=== PATIENT | female | born 1970 | race Caucasian/White ===

== ENCOUNTER → 2017-06-04 | Outpatient (CLI) | payer OTHER ==
--- NOTE | 2017-06-09 08:13 | MM ---
Reason for exam: screening (asymptomatic). Last mammogram was performed 1 year and 4 months ago. History: Benign excisional biopsy of the right breast, April 10, 2008. Physical Findings: A clinical breast exam by your physician is recommended on an annual basis and results should be correlated with mammographic findings. MG Screening Mammo w CAD Bilateral CC and MLO view(s) were taken. Prior study comparison: February 07, 2016, bilateral MG screening mammo w CAD. January 26, 2015, bilateral MG screening mammo w CAD. The breast tissue is extremely dense which could obscure a lesion on mammography. No significant changes when compared with prior studies. ASSESSMENT: Benign, BI-RAD 2 RECOMMENDATION: Routine screening mammogram of both breasts in 1 year.
== END | disposition home or self-care (01) ==
LOC: RADMAMWWP 15:10
PROVIDERS: ATTEND Family Medicine
DX: Z12.31 Encounter for screening mammogram for malignant neoplasm of breast (principal)

== ENCOUNTER → 2018-04-06 | Outpatient (CLI) | payer OTHER ==
--- NOTE | 2018-04-06 08:13 | MR ---
EXAMINATION TYPE: MR cervical spine wo con DATE OF EXAM: 04/06/2018 COMPARISON: NONE HISTORY: Radiculopathy TECHNIQUE: Multiplanar, multisequence images of the cervical spine were acquired. C2-C3: No evidence for degenerative disc disease. No disc bulge/herniation or protrusion. No Canal stenosis. Foramina are patent bilaterally. C3-C4: Uncovertebral joint hypertrophy in the left with mild left-sided foraminal encroachment. No ca nal stenosis or disc herniation. C4-C5: Bilateral uncovertebral joint hypertrophy. Left paracentral focal disc bulging noted. This enc roaches upon the anterior margin the spinal cord. Results in mild left foraminal encroachment. C5-C6: Degenerative disc disease with broad-based central, right paracentral and lateral disc protrus ion or small herniation. Severe right-sided foraminal encroachment. Moderate effacement of thecal sac and mild central stenosis. Uncovertebral joint hypertrophy noted. C6-C7: No evidence for degenerative disc disease. No disc bulge/herniation or protrusion. No Canal stenosis. Foramina are patent bilaterally. C7-T1: No evidence for degenerative disc disease. No disc bulge/herniation or protrusion. No Canal stenosis. Foramina are patent bilaterally. Cervical segments are intact. There is normal alignment. Cervical spinal cord is of normal signal. Craniovertebral junction relationships are within normal limits. Scoliotic curvature of the spine n oted. IMPRESSION: 1. C5-C6 there is broad-based central, right paracentral and right lateral disc protrusion or herniat ion resulting in severe right-sided foraminal encroachment. Moderate effacement of thecal sac and mil d central stenosis. Posterior spondylosis and uncovertebral joint hypertrophy contribute. 2. Left paracentral disc bulging which abuts the anterior margin the spinal cord C4-C5 and results in left-sided mild foraminal encroachment. 3. Uncovertebral joint hypertrophy C3-C4 with mild left-sided foraminal encroachment
== END ==
LOC: RADMRIMAIN 07:13
PROVIDERS: ATTEND Orthopaedic Surgery Orthopaedic Surgery of the Spine
DX: M48.02 Spinal stenosis, cervical region (principal); M50.122 Cervical disc disorder at C5-C6 level with radiculopathy; M47.22 Other spondylosis with radiculopathy, cervical region
CPT/HCPCS: 72141

== ENCOUNTER → 2018-05-20 | Outpatient (CLI) | payer OTHER ==
[2018-05-19 14:53] VITALS: BMI 26.2
[2018-05-20 13:34] VITALS: BP 176/95; PULSE 98; RESP 16
--- NOTE | 2018-05-21 08:36 | P.PAINCN ---
History of Present Illness - Reason for Consult Consult date: 05/20/18 - History of Present Illness This is 47 years old female with history of severe neck pain with limited to the right upper extremity, associated with numbness and tingling sensation, the symptoms started 4 months ago an increase in intensity over time, she denies any initiating event, pain is constant and aggravated with any activity, she has done physical therapy without any improvement, intensity of the pain 7/10 increased to 10 over 10 with activity, she denies any fever or night sweats she denies any change in the bowel movement or urination, she denies any motor or sensory deficit Past Medical History Past Medical History: GERD/Reflux, Musculoskeletal Disorder Additional Past Medical History / Comment(s): bone spur in neck, numbness, tingling down right arm History of Any Multi-Drug Resistant Organisms: None Reported Past Surgical History: Breast Surgery, Section, Cholecystectomy Additional Past Surgical History / Comment(s): breast biopsy, D & C's Past Anesthesia/Blood Transfusion Reactions: No Reported Reaction Smoking Status: Former smoker - Past Family History Father Family Medical History: Cancer Mother Family Medical History: Cancer Medications and Allergies Home Medications Medication Instructions Recorded Confirmed Type Acetaminophen [Tylenol] 325 mg PO Q6H PRN 05/19/18 05/19/18 History Ranitidine HCl [Zantac] 150 mg PO BID PRN 05/19/18 05/19/18 History Allergies Allergy/AdvReac Type Severity Reaction Status Date / Time acetaminophen [From Tavist] Allergy Rash/Hives Verified 05/19/18 14:50 clemastine [From Tavist] Allergy Rash/Hives Verified 05/19/18 14:50 Penicillins Allergy Rash/Hives Verified 05/19/18 14:50 pseudoephedrine [From Tavist] Allergy Rash/Hives Verified 05/19/18 14:50 Tetanus Vaccines and Toxoid Allergy Rash/Hives Verified 05/19/18 14:50 antiinflammatories Allergy Rash/Hives Uncoded 05/19/18 14:50 Physical Exam Vitals: Vital Signs Pulse Resp BP Pulse Ox 05/20/18 13:27 98 16 176/95 97 Social history : smoker , NO ETOH , NO Illegal drugs use . Review of Systems : 1- Constitutional : no chills , no fever , no night sweats , 2- Ears : no ear discharge , no change in hearing 3-Nose, Mouth ,Throat ; no bleeding gums, no sore throat , no epistaxis , 4-Cardiovascular : Denies chest pain, , no orthopnea , no palpitation 5-Respiratory : Denies cough , no dyspnea , no hemoptysis 6-Gastrointestinal :, no change in bowel habits , no coffee- ground emesis . 7-Genitourinary : No hematuria , no discharge , no incontinence, 8-Musculoskeletal : No gait dysfunction , report low back pain , 9- Neurological : no ataxia , no tremor , no sezure , 10-Psychatric , no suicidal ideation no hallucination 11- Endocrine : no cold intolerence , no polyuria , no polydypsia , 12-Hematologic : no easy bleeding , no easy brusing , 13-Allergic / immunology : no angioedema , no wheezing ,no allergic rhinitis 14-Integumentary : no brttle nails , no change hair / nails , no foot/leg ulcers . Physical Examinations : 1-Constitutional : Cooperative , not in acute distress . 2-HEENT : nech ; supple , no Lymphadenopathy , no Thyromegaly , :eyes , no icterus, no photophobia . ENT : , normal oropharynx , no Thrush 3- Respiratory : Chest clear to auscultations Bilaterally , no wheezing . 4- Cardiovascular : regular rate and rhythem , S1 , S2 , no S3 , no S4. 5- Gastrointestinal: abdomen soft no tenderness , no organomegally . 6- Genitourinary : Defferred . 7-Integumentary : No cellulitis , no ulcers , normal skin turgor , no cyanotic . 8- neurologic : Cranial nerve II to XII intact , no focal neurological deffecit 9-psychatric : alert , oriented X 3 , appropriate affect , intact judgment and insight . 10-Lymphatic : no Lymphadenopathy. 11- musculoskeltal: normal gait Cervical Spine motor stregnth in the deltoid and biceps, normal right side , normal Left side motor stregnth biceps and the wrist extensors normal right side ,normal left side . motor stregnth in the triceps muscle . normal Right side , normal Left side deep tendon reflexes normal at the biceps , normal at Brachioradialis , normal at triceps. cervical facet loading test negative. Results Comments: MRI of the cervical spine= C5 6 degenerative disc disease and right paracentral disc herniation and facet hypertrophy Assessment and Plan Plan: Assessment and plan= cervical radiculopathy, cervical disc herniation, She could benefit from cervical epidural steroid injections, procedure risk ,and benefits, and alternatives discussed with the patient ,she agreed with the preceding Time with Patient: Greater than 30 PQRS Measure Charge Sheet Measure #130: Documentation of Current Meds in Medical Chart: Patient's medications documented in chart Measure #226: Tobacco Use: Screen & Cessation Intervention: Pt not a tobacco user Measure #111: Pneumonia Vaccination: Pneumococcal vaccine NOT administered or previously given Measure #47: Advance Care Plan: Advance care planning discussed & documented, pt chose/unable to give Measure #412: Opioid Treatment Agreement: No documentation of signed opioid treatment agreement Measure #408: Opioid Therapy Follow-up Evaluation: Patient had NO f/u eval minimum every 3 months during opioid therapy Measure #317: Preventitive Care & Scrn High Bld Press & F/U: Pre-hypertensive or hypertensive BP documented, pt will f/u with PCP Measure #128: Body Mass Index (BMI) Screening & Follow-up: BMI documented ABOVE normal parameters - f/u documented Measure #131: Pain Assessment & Follow-up: Pain positive & plan documented, Follow-up scheduled Measure #431: Unhealthy Alcohol Use Preventative Care & Scrn: Patient not identified as an unhealthy alcohol user PQRS Narrative: Smoking Status Former smoker Do You Want the Pneumonia No Vaccine AT THIS TIME? Blood Pressure 176/95 Pain Intensity [Right Neck] 7 Scale Used Numeric (1 - 10) Hx Alcohol Use (MH) No Home Medications: Ambulatory Orders Acetaminophen [Tylenol] 325 mg PO Q6H PRN 05/19/18 Ranitidine HCl [Zantac] 150 mg PO BID PRN 05/19/18
== END | disposition home or self-care (01) ==
LOC: PNWHC3 12:50
PROVIDERS: ATTEND Specialist
DX: M50.122 Cervical disc disorder at C5-C6 level with radiculopathy (principal); K21.9 Gastro-esophageal reflux disease without esophagitis; Z87.891 Personal history of nicotine dependence; Z79.899 Other long term (current) drug therapy; Z88.0 Allergy status to penicillin; Z88.8 Allergy status to other drugs, medicaments and biological substances
CPT/HCPCS: 99201

== ENCOUNTER 2018-06-01 06:16 | Day surgery (SDC) | payer OTHER ==
[2018-05-27 14:45] VITALS: BMI 26.2
[~2018-06-01 06:16] MED LIST: LACTATED RINGERS 1,000 ML IV SCH
[2018-06-01 06:33] VITALS: TEMP 97
[2018-06-01 07:29] VITALS: RESP 20
--- NOTE | 2018-06-01 07:37 | P.PCN ---
Date of Procedure: 06/01/18 Surgeon: Dereje Malhotra Description of Procedure: PREOPERATIVE DIAGNOSIS: Cervical radiculopathy Cervical degenerative disc disease POSTOPERATIVE DIAGNOSIS: Cervical radiculopathy Cervical degenerative disc disease PROCEDURE Cervical neural steroid injection under fluoroscopic guidance at the C7-T1 interspace. ANESTHESIA: Local with 1% lidocaine 3 ml and IV sedation with Versed 2 mg and 100 mg of fentanyl EBL: Minimal PROCEDURE INDICATION: The patient with cervical radicular symptoms unresponsive to conservative treatment. Fluoroscopy was used to optimize visualization of the needle placement and to maximize safety. PROCEDURE DESCRIPTION / TECHNIQUE: The patient was seen and identified in the preoperative area. Risks, benefits , complications including but not limited to infections ,bleeding ,allergic reaction to the medications ,nerve damage and incomplete pain relief, and alternatives were discussed with the patient. The patient agreed to proceed with the procedure and signed the consent. IV was started, and vital signs were stable. Patient was taken to the OR and time out was completed. The patient was placed in the prone position on procedure table and a pillow was placed under the chest area.. The cervical area was prepped and draped in the usual sterile fashion. Conscious sedation was used during the procedure to decrease patient s anxiety. Vital signs was monitered during the entire procedure. Using anterior-posterior fluoroscopy, the C7-T1 interlaminar space was identified and the skin over this site was marked and then infiltrated with 1% lidocaine subcutaneously. Subsequently, a 20-gauge Tuohy epidural needle was inserted and advanced toward the epidural space using the loss of resistance technique and guided by AP and lateral fluoroscopy. The correct needle position in the epidural space was verified with the injection of contrast and observing an excellent epidurogram with the epidural spread of the dye, after negative aspiration for blood and CSF and in the absence of paresthesias. Again after negative aspiration, a 4 ml mixture containing 80 mg of Depo-Medrol was injected. Needle was withdrawn intact, skin was cleansed, and bandages were applied. COMPLICATIONS: None DISPOSITION / PLANS: The patient was placed in a supine position and transferred to the recovery area in a stable condition for observation. There was no evidence of lower extremity motor or sensory deficit after the procedure. Patient was discharged from the recovery room after meeting discharge criteria. Home discharge instructions were given to the patient by the staff. The patient was reexamined prior to discharge. The patient will schedule a follow up in the clinic in 2-4 weeks.
[2018-06-01] MEDS ORDERED: IV FLUID CONTINUATION 1,000 ML IV ONE (07:50)
[2018-06-01 07:51] VITALS: BP 124/81; PULSE 80
--- NOTE | 2018-06-01 08:55 | FL ---
Fluoroscopy INDICATION: Pain FINDINGS: Fluoroscopy time: 8 seconds. Images obtained: 2. IMPRESSIONS: 1. Documentation of fluoroscopy.
== END 2018-06-01 07:55 | disposition home or self-care (01) ==
LOC: ORPAIN 06:16
PROVIDERS: ATTEND Pain Medicine Pain Medicine
DX: M50.10 Cervical disc disorder with radiculopathy, unspecified cervical region (principal); K21.9 Gastro-esophageal reflux disease without esophagitis; Z87.891 Personal history of nicotine dependence; Z88.0 Allergy status to penicillin; Z88.8 Allergy status to other drugs, medicaments and biological substances; Z88.7 Allergy status to serum and vaccine
CPT/HCPCS: 81025; 62321; J2250; J1030; J3010; Q9966; 99152

== ENCOUNTER 2018-06-15 06:26 | Day surgery (SDC) | payer OTHER ==
[2018-06-10 10:43] VITALS: BMI 26.2
[2018-06-15 07:15] VITALS: RESP 16; TEMP 98
[2018-06-15] MEDS ORDERED: LIDOCAINE 1% 20 ML VIAL (10MG/ML) FOR IV START INTRADERMA ONE (07:22)
--- NOTE | 2018-06-15 07:45 | P.PCN ---
Date of Procedure: 06/15/18 Surgeon: Nirmala Walsh Pathology: none sent Condition: stable Disposition: PACU Description of Procedure: PROCEDURE 1. Cervical epidural steroid injection under fluoroscopic guidance, C7-T1 right paramedian approach. 2. Cervical epidurogram. : PREOPERATIVE DIAGNOSIS: Cervical radiculopathy, cervical spondylosis without myelopathy POSTOPERATIVE DIAGNOSIS: : Same as above ANESTHESIA: Local anesthesia with 1% lidocaine and IV sedation with Versed and Fentanyl . EBL 0 PROCEDURE INDICATION: The patient with neck pain and radiculopathy unresponsive to conservative treatment consents for procedure. PROCEDURE DESCRIPTION / TECHNIQUE: The patient was seen and identified in the preoperative area. Risks, benefits, complications, including but not limited to infections ,bleeding , allergic reactions to the medications ,and not complete pain relief, and alternatives were discussed with the patient, the patient agreed to proceed with the procedure and signed the consent. Patient was taken to the OR and time out was completed. The patient was placed in the prone position on the procedure table. A pillow was placed under the patients chest to increase the flexion of the cervical spine . The cervical area was prepped and draped in the usual sterile fashion. Vital signs were closely monitored during the procedure. Conscious sedation was used during the procedure to decrease patients anxiety. Using anterior-posterior fluoroscopy, the C7-T1 interlaminar space was identified and the skin over this site was marked and then infiltrated with 1% lidocaine subcutaneously. Subsequently, a 20-gauge 3-1/2-inch Tuohy epidural needle was inserted and advanced toward the epidural space by means of loss of resistance to air technique and guided by AP and lateral fluoroscopy in the right paramedian approach. The needle tip contacted the lamina of T1 vertebra first, then it was walked off the bone and into the epidural space using the loss of to air and fluoroscopic guidance to identify the epidural space. The correct needle position in the epidural space was verified with the injection of 1 mL of the water soluble contrast dye Isovue and observing an excellent epidurogram with the epidural spread of the dye, after negative aspiration for blood and CSF and in the absence of paresthesias. Again after negative aspiration, a 5 ml mixture containing 10 mg of Decadron and 4 ml of preservative free Normal Saline solution was injected and a washout of epidurogram was seen. Needle was withdrawn intact, skin was cleansed, and bandages were applied.
[2018-06-15 08:04] VITALS: BP 142/84; PULSE 78
[2018-06-15] MEDS ORDERED: IV FLUID CONTINUATION 1,000 ML IV ONE (08:06)
--- NOTE | 2018-06-15 08:07 | FL ---
EXAMINATION TYPE: FL guided pain mgmt statistic DATE OF EXAM: 06/15/2018 CLINICAL HISTORY: Neck pain. TECHNIQUE: Fluoroscopy. COMPARISON: None. FINDINGS: Fluoroscopic guidance was provided during pain relief procedure performed by Dr. Walsh . A total of 4 seconds of fluoroscopic time was utilized during the procedure and single spot image i s acquired. Single image acquired shows needle localization at C7 level. IMPRESSION: As Above.
== END 2018-06-15 08:13 | disposition home or self-care (01) ==
LOC: ORPAIN 06:26
PROVIDERS: ATTEND Anesthesiology
DX: M47.22 Other spondylosis with radiculopathy, cervical region (principal); Z88.6 Allergy status to analgesic agent; Z88.0 Allergy status to penicillin; Z88.7 Allergy status to serum and vaccine; Z88.8 Allergy status to other drugs, medicaments and biological substances
CPT/HCPCS: 81025; 62321; J2250; J1100; J3010; Q9966; 99152

== ENCOUNTER → 2018-07-13 | Outpatient (CLI) | payer OTHER ==
--- NOTE | 2018-07-13 15:34 | P.PAINPG ---
Subjective Progress Note Date: 07/13/18 This is 47 years old female with history of severe neck pain with limited to the right upper extremity, associated with numbness and tingling sensation, the patient had cervical epidural steroid injections x2 she continued to have severe pain and tingling sensation , pain is constant and aggravated with any activity, she has done physical therapy without any improvement, intensity of the pain 7/10 increased to 10 over 10 with activity, she denies any fever or night sweats she denies any change in the bowel movement or urination, she denies any motor or sensory deficit Physical Examinations : 1-Constitutional : Cooperative , not in acute distress . 2-HEENT : nech ; supple , no Lymphadenopathy , no Thyromegaly , :eyes , no icterus, no photophobia . ENT : , normal oropharynx , no Thrush 3- Respiratory : Chest clear to auscultations Bilaterally , no wheezing . 4- Cardiovascular : regular rate and rhythem , S1 , S2 , no S3 , no S4. 5- Gastrointestinal: abdomen soft no tenderness , no organomegally . 6- Genitourinary : Defferred . 7-Integumentary : No cellulitis , no ulcers , normal skin turgor , no cyanotic . 8- neurologic : Cranial nerve II to XII intact , no focal neurological deffecit 9-psychatric : alert , oriented X 3 , appropriate affect , intact judgment and insight . 10-Lymphatic : no Lymphadenopathy. 11- musculoskeltal: normal gait Cervical Spine motor stregnth in the deltoid and biceps, normal right side , normal Left side motor stregnth biceps and the wrist extensors normal right side ,normal left side . motor stregnth in the triceps muscle . normal Right side , normal Left side deep tendon reflexes normal at the biceps , normal at Brachioradialis , normal at triceps. cervical facet loading test negative. MRI of the cervical spine= C5 6 degenerative disc disease and right paracentral disc herniation and facet hypertrophy Assessment and plan= cervical radiculopathy, cervical disc herniation, She could benefit from repeate cervical epidural steroid injections, procedure risk ,and benefits, and alternatives discussed with the patient ,she agreed with the preceding Patient could benefit from Lyrica 25 mg daily at bedtime and increase to 3 times a day over 4 weeks Objective - Vital Signs Vital signs: Intake & Output 07/12/18 07/13/1818 18:59 06:59 18:59 Weight 58.967 kg PQRS Measure Charge Sheet Measure #130: Documentation of Current Meds in Medical Chart: Patient's medications documented in chart Measure #226: Tobacco Use: Screen & Cessation Intervention: Pt not a tobacco user Measure #111: Pneumonia Vaccination: Pneumococcal vaccine NOT administered or previously given Measure #47: Advance Care Plan: Advance care planning discussed & documented, pt chose/unable to give Measure #412: Opioid Treatment Agreement: No documentation of signed opioid treatment agreement Measure #408: Opioid Therapy Follow-up Evaluation: Patient had NO f/u eval minimum every 3 months during opioid therapy Measure #317: Preventitive Care & Scrn High Bld Press & F/U: Pre-hypertensive or hypertensive BP documented, pt will f/u with PCP Measure #128: Body Mass Index (BMI) Screening & Follow-up: BMI documented ABOVE normal parameters - f/u documented Measure #131: Pain Assessment & Follow-up: Pain positive & plan documented, Follow-up scheduled Measure #431: Unhealthy Alcohol Use Preventative Care & Scrn: Patient not identified as an unhealthy alcohol user PQRS Narrative: Smoking Status Never smoker Do You Want the Pneumonia No Vaccine AT THIS TIME? Pain Intensity [Neck] 3 Scale Used Numeric (1 - 10) Hx Alcohol Use (MH) No Home Medications: Ambulatory Orders Acetaminophen [Tylenol] 325 mg PO Q6H PRN 05/19/18 Ranitidine HCl [Zantac] 150 mg PO BID PRN 05/19/18 Controlled Substance Measures - Controlled Substance Measures Is patient prescribed a controlled substance at discharge?: No When asked, does pt state using other controlled substances?: No If prescribed controlled substance>3 days was MAPS reviewed?: No If Rx opioid, was Start Talking consent form obtained?: No If opioid is for acute pain is fill amount 7 days or less?: No Was information provided regarding opioid addiction?: No
== END ==
LOC: PNWHC3 14:16
PROVIDERS: ATTEND Specialist
DX: M50.122 Cervical disc disorder at C5-C6 level with radiculopathy (principal); Z79.899 Other long term (current) drug therapy
CPT/HCPCS: 99211

== ENCOUNTER → 2018-08-03 | Day surgery (SDC) | payer OTHER ==
[2018-07-29 11:09] VITALS: BMI 26.2
[2018-08-03 10:30] VITALS: TEMP 98.1
--- NOTE | 2018-08-03 11:00 | P.PCN ---
Date of Procedure: 08/03/18 Procedure(s) Performed: . PROCEDURE 1. Cervical epidural steroid injection under fluoroscopic guidance, C7-T1 2. Cervical epidurogram. PREOPERATIVE DIAGNOSIS: 1- Cervical herniated Disc Diseases 2- Cervical radiculopathy. POSTOPERATIVE DIAGNOSIS: : 1- Cervical Degenerative Disc Diseases , 2- Cervical radiculopathy. ANESTHESIA: Local anesthesia with lidocaine 1 % , and moderate sedation, with Versed 2 mg and Fentanyl 50 mcg. EBL 0 PROCEDURE INDICATION: The patient with neck pain and radiculitis unresponsive to conservative treatment consents for procedure. PROCEDURE DESCRIPTION / TECHNIQUE: The patient was seen and identified in the preoperative area. Risks, benefits, complications, including but not limited to infections ,bleeding , allergic reactions to the medications ,and not complete pain releife, and alternatives were discussed with the patient, the patient agreed to proceed with the procedure and signed the consent. Patient was taken to the OR and time out was completed. The patient was placed in the prone position on the procedure table. A pillow was placed under the patients chest to increase the cervical interlaminar space. The cervical area was prepped and draped in the usual sterile fashion. Vital signs were closely monitored during the procedure. Conscious sedation was used during the procedure to decrease patients anxiety. Using anterior-posterior fluoroscopy, the C7-T1 interlaminar space was identified and the skin over this site was marked and then infiltrated with 1% lidocaine subcutaneously. Subsequently, a 20-gauge 3-1/2-inch Tuohy epidural needle was inserted and advanced toward the epidural space by means of the `` hanging-drop technique and guided by AP and lateral fluoroscopy. The correct needle position in the epidural space was verified with the injection of 2 mL of the water soluble contrast dye [id number]-200 and observing an excellent epidurogram with the epidural spread of the dye, after negative aspiration for blood and CSF and in the absence of paresthesias. Again after negative aspiration, mixture containing 20 mg Dexamethasone and 2 ml of preservative- free normal saline injected and a washout of epidurogram was seen. Needle was withdrawn intact, skin was cleansed, and bandages were applied. Complications= none. Disposition= patient was placed in supine position and transferred to the recovery room area in stable condition and there was no evidence of upper or lower extremity motor or sensory deficit after the procedure patient was discharged from recovery room after discharge criteria met and home discharge instructions was given by the staff and patient will follow with the pain clinic in 2-4 weeks
[2018-08-03 11:07] VITALS: PULSE 90; RESP 20
[2018-08-03 11:39] VITALS: BP 146/73
--- NOTE | 2018-08-03 12:18 | FL ---
EXAMINATION TYPE: FL guided pain mgmt statistic DATE OF EXAM: 08/03/2018 HISTORY: Pain Cervical epidural, steroid injection, 4sec fl time
== END | disposition home or self-care (01) ==
LOC: ORPAIN 08:36
PROVIDERS: ATTEND Specialist
DX: M50.13 Cervical disc disorder with radiculopathy, cervicothoracic region (principal); Z88.0 Allergy status to penicillin; Z88.6 Allergy status to analgesic agent; Z88.7 Allergy status to serum and vaccine; Z88.8 Allergy status to other drugs, medicaments and biological substances
CPT/HCPCS: 62321; J2250; J1100; J3010; Q9966

== ENCOUNTER → 2018-10-12 | Outpatient (CLI) | payer OTHER ==
[2018-10-12 14:00] VITALS: BP 156/98; PULSE 97; RESP 18
--- NOTE | 2018-10-13 20:55 | P.PN ---
Subjective Progress Note Date: 10/13/18 This is foll up visit for this 48 years old female with history of severe neck pain with limited to the right upper extremity, associated with numbness and tingling sensation, she is diagnosed with cervical radiculopathy and cervical herniated disc disease, we have done cervical epidural steroid injections 3 and she reports her pain symptoms improved significantly, she denies any fever or night sweats she denies any change in the bowel movement or urination, she denies any motor or sensory deficit, she is currently using Lyrica 25 mg 3 times a day, she denies any side effect of the medication she denies any excessive drowsiness or sleepiness and she reported the current medication helping her symptoms Physical Examinations : 1-Constitutional : Cooperative , not in acute distress . . 2- neurologic : Cranial nerve II to XII intact , no focal neurological deffecit 3-psychatric : alert , oriented X 3 , appropriate affect , intact judgment and insight . 4- musculoskeltal: Cervical Spine motor stregnth in the deltoid and biceps, normal right side , normal Left side motor stregnth biceps and the wrist extensors normal right side ,normal left side . motor stregnth in the triceps muscle . normal Right side , normal Left side deep tendon reflexes normal at the biceps , normal at Brachioradialis , normal at triceps. Results MRI of the cervical spine= C5 6 degenerative disc disease and right paracentral disc herniation and facet hypertrophy Assessment and plan= cervical radiculopathy, cervical disc herniation, Status post cervical epidural steroid injections X 3 pain improved , recommend decrease Lyrica to 25 mg twice a day and then it will be stopped after 3 months, and she will follow up in the pain clinic in 3 months PQRS Measure Charge Sheet Measure #130: Documentation of Current Meds in Medical Chart: Patient's medications documented in chart Measure #226: Tobacco Use: Screen & Cessation Intervention: Pt not a tobacco user Measure #111: Pneumonia Vaccination: Pneumococcal vaccine NOT administered or previously given Measure #47: Advance Care Plan: Advance care planning discussed & documented, pt chose/unable to give Measure #412: Opioid Treatment Agreement: No documentation of signed opioid treatment agreement Measure #408: Opioid Therapy Follow-up Evaluation: Patient had NO f/u eval minimum every 3 months during opioid therapy Measure #317: Preventitive Care & Scrn High Bld Press & F/U: Pre-hypertensive or hypertensive BP documented, pt will f/u with PCP Measure #128: Body Mass Index (BMI) Screening & Follow-up: BMI documented ABOVE normal parameters - f/u documented Measure #131: Pain Assessment & Follow-up: Pain positive & plan documented, Follow-up scheduled Measure #431: Unhealthy Alcohol Use Preventative Care & Scrn: Patient not identified as an unhealthy alcohol user PQRS Narrative: Objective - Vital Signs Vital signs: Vital Signs Temp Pulse 97 10/12/18 13:48 Resp 18 10/12/18 13:48 BP 156/98 10/12/18 13:48 Pulse Ox 100 10/12/18 13:48
== END ==
LOC: PNWHC3 13:35
PROVIDERS: ATTEND Specialist
DX: M50.10 Cervical disc disorder with radiculopathy, unspecified cervical region (principal); M50.122 Cervical disc disorder at C5-C6 level with radiculopathy; M46.92 Unspecified inflammatory spondylopathy, cervical region; Z79.891 Long term (current) use of opiate analgesic; Z79.899 Other long term (current) drug therapy
CPT/HCPCS: 99211

== ENCOUNTER → 2018-10-13 | Outpatient (CLI) | payer OTHER ==
--- NOTE | 2018-10-16 09:34 | MM ---
Reason for exam: screening (asymptomatic). Last mammogram was performed 1 year and 4 months ago. History: Benign excisional biopsy of the right breast, April 10, 2008. MG Screening Mammo w CAD Bilateral CC and MLO view(s) were taken. Prior study comparison: June 04, 2017, bilateral MG screening mammo w CAD. February 07, 2016, bilateral MG screening mammo w CAD. The breast tissue is heterogeneously dense. This may lower the sensitivity of mammography. No discrete abnormality. ASSESSMENT: Negative, BI-RAD 1 RECOMMENDATION: Routine screening mammogram of both breasts in 1 year.
== END | disposition home or self-care (01) ==
LOC: RADMAMWWP 08:07
PROVIDERS: ATTEND Family Medicine
DX: Z12.31 Encounter for screening mammogram for malignant neoplasm of breast (principal)
CPT/HCPCS: 77067

== ENCOUNTER → 2019-01-13 | Outpatient (CLI) | payer OTHER ==
[2019-01-13 14:40] VITALS: BP 164/92; PULSE 97; RESP 16
--- NOTE | 2019-01-13 15:07 | P.PN ---
Progress Note - Text Progress Note Date: 01/13/19 This is a follow-up visit for this 48 years old female, with a history of neck pain diagnosis of cervical radiculopathy, cervical disc herniation we have done cervical epidural steroid injection 2, neck pain improved significantly and she is currently on Lyrica 25 mg twice a day, and she is here today to wean her off the Lyrica, and there is no other issues to address, i.e. changing the dose of Lyrica to 25 mg 1 tablet by mouth daily, and she will follow up with the pain clinic when necessary, she denies any side effect of the medication she denies any motor or sensory deficits and she is very satisfied with the result of the treatment
== END ==
LOC: PNWHC3 13:49
PROVIDERS: ATTEND Specialist
DX: M50.10 Cervical disc disorder with radiculopathy, unspecified cervical region (principal); Z79.899 Other long term (current) drug therapy
CPT/HCPCS: 99211

== ENCOUNTER → 2019-12-05 | Outpatient (CLI) | payer OTHER ==
--- NOTE | 2019-12-05 13:37 | MM ---
Reason for exam: screening (asymptomatic). Last mammogram was performed 1 year and 2 months ago. History: Benign excisional biopsy of the right breast, April 10, 2008. Physical Findings: A clinical breast exam by your physician is recommended on an annual basis and results should be correlated with mammographic findings. MG Screening Mammo w CAD Bilateral CC and MLO view(s) were taken. Prior study comparison: October 13, 2018, bilateral MG screening mammo w CAD. June 04, 2017, bilateral MG screening mammo w CAD. The breast tissue is heterogeneously dense. This may lower the sensitivity of mammography. Benign appearing calcifications in the left breast. No suspicious abnormality. ASSESSMENT: Benign, BI-RAD 2 RECOMMENDATION: Routine screening mammogram of both breasts in 1 year.
== END | disposition home or self-care (01) ==
LOC: RADMAMWWP 12:50
PROVIDERS: ATTEND Family Medicine
DX: Z12.31 Encounter for screening mammogram for malignant neoplasm of breast (principal)
CPT/HCPCS: 77067

== ENCOUNTER → 2020-02-28 | Outpatient (CLI) | payer OTHER | END | disposition home or self-care (01) | LOC: LABWHC1 12:23 | PROVIDERS: ATTEND Family Medicine | DX: Z11.59 Encounter for screening for other viral diseases (principal) | CPT/HCPCS: 87635 ==

== ENCOUNTER 2020-03-01 09:50 | Day surgery (SDC) | payer OTHER ==
[2020-02-29 10:45] VITALS: BMI 28.3
[2020-03-01 10:37] VITALS: RESP 16; TEMP 97.7
[2020-03-01] MEDS ORDERED: MIDAZOLAM 2 MG/2 ML VIAL ONE (11:06)
[2020-03-01] MEDS ORDERED: fentaNYL (PF) 50 MCG/ML 2 ML AMP ONE (11:06)
[2020-03-01] MEDS ORDERED: IOPAMIDOL M200 10 ML VIAL ONE (11:06)
[2020-03-01] MEDS ORDERED: DEXAMETHASONE SOD PHOSPHATE 10 MG/ML 1 ML VIAL ONE (11:06)
--- NOTE | 2020-03-01 11:22 | P.PCN ---
Date of Procedure: 03/01/20 Procedure(s) Performed: Diagnosis: Cervical radiculopathy Cervical degenerative disc disease POSTOPERATIVE DIAGNOSIS: Diagnoses: Cervical radiculopathy Cervical degenerative disc disease PROCEDURE Cervical Epidural steroid injection under fluoroscopic guidance at the C7-T1 interspace using right paramedian approach Cervical epidurogram ANESTHESIA: Local with 1% lidocaine 3 ml and IV sedation with Versed and fentanyl, sedation time 8 minutes Fluoroscopy was used for the procedure and images were saved in the radiology portion of the chart. EBL: Minimal PROCEDURE INDICATION: The patient presents with cervical radicular symptoms unresponsive to conservative treatment. PROCEDURE DESCRIPTION / TECHNIQUE: The patient was seen and identified in the preoperative area. Risks, benefits, complications including but not limited to infections ,bleeding ,allergic reaction to the medications ,nerve damage and incomplete pain relief, and alternatives were discussed with the patient. The patient agreed to proceed with the procedure and signed the consent. IV was started, and vital signs were stable. Patient was taken to the OR and time out was completed. The patient was placed in the prone position on procedure table and a pillow was placed under the chest area. The cervical area was prepped and draped in the usual sterile fashion. Conscious sedation was used during the procedure to decrease patients anxiety. Vital signs was monitored during the entire procedure. Using anterior-posterior fluoroscopy, the C7-T1 interlaminar space was identified and the skin over this site was marked and then infiltrated with 1% lidocaine subcutaneously. Subsequently, a 20-gauge Tuohy epidural needle was inserted and advanced toward the epidural space using the loss of resistance technique and guided by AP and 50 oblique fluoroscopy. The correct needle position in the epidural space was verified. After negative aspiration for blood and CSF and in the absence of paresthesias, Isovue 200 2 mL's was injected under live fluoroscopy with good epidural spread. After negative aspiration, a 5 ml mixture containing 10 mg of dexamethasone, 3 mL of preservative free normal saline and 1 mL of 1% lidocaine was injected. Needle was withdrawn intact, skin was cleansed, and bandages were applied. COMPLICATIONS: None DISPOSITION / PLANS: The patient was placed in a supine position and transferred to the recovery area in a stable condition for observation. There was no evidence of lower extremity motor or sensory deficit after the procedure. Patient was discharged from the recovery room after meeting discharge criteria. Home discharge instructions were given to the patient by the staff. The patient will be scheduled a follow-up in the clinic in 4 weeks.
[2020-03-01] MEDS ORDERED: IV FLUID CONTINUATION 600 ML IV ONE (11:25)
--- NOTE | 2020-03-01 11:38 | FL ---
EXAMINATION TYPE: FL guided pain mgmt statistic DATE OF EXAM: 03/01/2020 CLINICAL HISTORY: Neck pain. TECHNIQUE: Fluoroscopy. COMPARISON: None. FINDINGS: Fluoroscopic guidance was provided during pain relief procedure performed by Dr. Velazco. A t otal of 5 seconds of fluoroscopic time was utilized during the procedure and two spot images are acqu ired. Images acquired shows needle localization of the cervical thoracic junction. IMPRESSION: As Above.
[2020-03-01 11:47] VITALS: BP 147/88; PULSE 78
== END 2020-03-01 11:55 | disposition home or self-care (01) ==
LOC: ORPAIN 09:50
PROVIDERS: ATTEND Anesthesiology
DX: M50.10 Cervical disc disorder with radiculopathy, unspecified cervical region (principal); Z88.6 Allergy status to analgesic agent; Z88.0 Allergy status to penicillin; Z88.7 Allergy status to serum and vaccine; Z88.8 Allergy status to other drugs, medicaments and biological substances
CPT/HCPCS: 81025; 62321; J2250; J1100; J3010; Q9966

== ENCOUNTER → 2020-04-11 | Outpatient (CLI) | payer OTHER ==
--- NOTE | 2020-04-11 09:34 | P.PN ---
Progress Note - Text Progress Note Date: 04/11/20 This is a follow-up visit for this 49 years old female, diagnosed with cervical herniated disc disease and cervical radiculopathy, cervical spondylosis, a few weeks ago, we did cervical epidural steroid injection x1 and that helped her neck pain significantly, she did very well, and she had excellent pain relief, she denies any motor or sensory deficit she denies any change in the bowel movement or urination, she denies any fever or night sweats., She uses Motrin [id number] once or twice a week since the injection Physical examination -Constitutiona : Cooperative , not in acute distress . -HEENT : nech : supple , no Lymphadenopathy , normal thyroid size . : eyes : no ptosis , no icterus, no photophobia . - neurologic : Cranial nerve II to XII intact , no focal neurological deffecit . -psychatric : alert , oriented X 3 , appropriate affect , intact judgment and insight . -Lymphatic : no Lymphadenopathy . - musculoskeltal : Cervical Spine motor stregnth in the deltoid and biceps, normal right side , normal Left side motor stregnth biceps and the wrist extensors normal right side ,normal left side . Lumber spine moter stegnth lower extremities ,thigh and legs 5/5 Right side , 5/5 Left side Assessment and plan= cervical radiculopathy, cervical herniated disc disease. Symptoms improved after cervical epidural steroid injection x1. Patient will follow up in the pain clinic when n ecessary , in the future we can repeat cervical epidural steroid injection if needed - PQRS measures = - Patient's medications are documented in the chart. -Tobacco use is negative and counseling.Given. -Patient's has not received pneumococcal vaccine. -Advanced care planning discussed, patient not eligible. -Opiate contract not signed. -Pain negative , she will follow up when necessary -Patient's blood pressure measured [176/91 ] , and documented in the record ,and patient will follow up with the primary care. -Patient's weight was measured and body mass index [ 27 ] above the normal limits. and patient instructed to follow-up with the primary care physician. -Patient was not identified as an unhealthy alcohol user
[2020-04-13 09:22] VITALS: BP 176/91; PULSE 97; RESP 18
== END | disposition home or self-care (01) ==
LOC: PNWHC3 08:49
PROVIDERS: ATTEND Specialist
DX: M47.22 Other spondylosis with radiculopathy, cervical region (principal); M50.10 Cervical disc disorder with radiculopathy, unspecified cervical region
CPT/HCPCS: 99211

== ENCOUNTER 2020-08-14 06:55 | Day surgery (SDC) | payer BC, OTHER ==
[2020-08-14 07:19] VITALS: BP 179/88; TEMP 98.8
[2020-08-14] MEDS ORDERED: LACTATED RINGERS 1,000 ML IV SCH (07:22)
[2020-08-14] MEDS ORDERED: SODIUM CHLORIDE 0.9% (PF) 10 ML VIAL ONE (07:55)
[2020-08-14] MEDS ORDERED: DEXAMETHASONE SOD PHOSPHATE 10 MG/ML 1 ML VIAL ONE (07:55)
[2020-08-14] MEDS ORDERED: IOPAMIDOL M200 10 ML VIAL ONE (07:55)
--- NOTE | 2020-08-14 08:08 | P.PCN ---
Date of Procedure: 08/14/20 Procedure(s) Performed: PROCEDURE 1. Cervical epidural steroid injection under fluoroscopic guidance, C7-T1 2. Cervical epidurogram. PREOPERATIVE DIAGNOSIS: 1- Cervical herniated Disc Diseases 2- Cervical radiculopathy. POSTOPERATIVE DIAGNOSIS: : 1- Cervical Degenerative Disc Diseases , 2- Cervical radiculopathy. ANESTHESIA: Local anesthesia with lidocaine 1 % 3 ml only . EBL 0 PROCEDURE INDICATION: The patient with neck pain and radiculitis unresponsive to conservative treatment consents for procedure. PROCEDURE DESCRIPTION / TECHNIQUE: The patient was seen and identified in the preoperative area. Risks, benefits, complications, including but not limited to infections ,bleeding , allergic reactions to the medications ,and not complete pain releife, and alternatives were discussed with the patient, the patient agreed to proceed with the procedure and signed the consent. Patient was taken to the OR and time out was completed. The patient was placed in the prone position on the procedure table. A pillow was placed under the patients chest to increase the cervical interlaminar space. The cervical area was prepped and draped in the usual sterile fashion. Vital signs were closely monitored during the procedure. Using anterior-posterior fluoroscopy, the C7-T1 interlaminar space was identified and the skin over this site was marked and then infiltrated with 1% lidocaine subcutaneously. Subsequently, a 20-gauge 3-1/2-inch Tuohy epidural needle was inserted and advanced toward the epidural space by means of the ``hanging-drop technique and guided by AP and lateral fluoroscopy. The correct needle position in the epidural space was verified with the injection of 2 mL of the water soluble contrast dye Isovue-200 and observing an excellent epidurogram with the epidural spread of the dye, after negative aspiration for blood and CSF and in the absence of paresthesias. Again after negative aspiration, mixture containing 20 mg Dexamethasone and 2 ml of preservative- free normal saline injected and a washout of epidurogram was seen. Needle was withdrawn intact, skin was cleansed, and bandages were applied. Complications= none. Disposition= patient was placed in supine position and transferred to the recovery room area in stable condition and there was no evidence of upper or lower extremity motor or sensory deficit after the procedure patient was discharged from recovery room after discharge criteria met and home discharge instructions was given by the staff and patient will follow with the pain clinic in 2-4 weeks
[2020-08-14 08:19] VITALS: RESP 16
[2020-08-14 08:47] VITALS: PULSE 69
--- NOTE | 2020-08-14 09:27 | FL ---
EXAMINATION TYPE: FL guided pain mgmt statistic DATE OF EXAM: 08/14/2020 FLUOROSCOPY Fluoroscopy time of 3 seconds was used during cervical epidural steroid injection. 1 image/s documen t/s the procedure.
== END 2020-08-14 08:52 ==
LOC: ORPAIN 06:55
PROVIDERS: ATTEND Specialist
DX: M50.10 Cervical disc disorder with radiculopathy, unspecified cervical region (principal); Z88.0 Allergy status to penicillin; Z88.7 Allergy status to serum and vaccine; Z88.8 Allergy status to other drugs, medicaments and biological substances; Z88.6 Allergy status to analgesic agent
CPT/HCPCS: 81025; 62321; J1100; Q9966

== ENCOUNTER → 2020-09-03 | Outpatient (CLI) | payer BC ==
[2020-09-03 11:22] VITALS: BP 177/101; PULSE 86; RESP 16; TEMP 98.1
--- NOTE | 2020-09-03 11:36 | P.PAINPG ---
Subjective Progress Note Date: 09/03/20 This is a follow-up visit for this 49 years old female, diagnosed with cervical herniated disc disease and cervical radiculopathy, cervical spondylosis, she's had 2 TRISHA this year (02/2020 and 08/2020). Here for follow up for most recent TRISHA. Her first epidural did work for some time, hwoever the most recent epidural provided 0% relief. Pain is still in the neck with radiation down the right lower extremity to the fingers described as numb and tingling. So she feels a fullness sensation in her right shoulder and biceps area. Does not particularly care for medications and only takes Tylenol if she says helps a little bit. His very active person and is going to just tend to make her pain a little bit worse. He has not seen Dr. benitez since 2018. Currently a 5/10, at its worst a 10/10, at its best a 2/10. she denies any motor or sensory deficit she denies any change in the bowel movement or urination, she denies any fever or night sweats. Physical examination -Constitutiona : Cooperative , not in acute distress . -HEENT : nech : supple , no Lymphadenopathy , normal thyroid size . : eyes : no ptosis , no icterus, no photophobia . - neurologic : Cranial nerve II to XII intact , no focal neurological deffecit . -psychatric : alert , oriented X 3 , appropriate affect , intact judgment and insight . -Lymphatic : no Lymphadenopathy . - musculoskeltal : Cervical Spine motor stregnth in the deltoid and biceps, normal right side , normal Left side motor stregnth biceps and the wrist extensors normal right side ,normal left side TTP over right cervical paraspinal muscles. Lumber spine moter stegnth lower extremities ,thigh and legs 5/5 Right side , 5/5 Left side Reflexes intact, negative Villarreal sign bilaterally MRI Cervical Spine 07/2018 Most prominent at C5-C6: There is degenerative disc disease and a broad-based central right paracentral lateral disc protrusion with severe right-sided foraminal encroachment. Moderate effacement of the thecal sac and mild central stenosis. Assessment and plan= cervical radiculopathy, cervical herniated disc disease. - At This point given that her epidurals are not providing any benefit I recommended that she see Dr. ambrocio to consider surgical evaluation. It is noted in the past record from 2018 Dr Ambrocio did say should be a candidate for an ACDF and this might be the best thing for her moving forward. We did discuss medication management such as using neuropathic agent such as gabapentin, however the patient would like to talk to Dr. Ambrocio before considering any form of medication management. - PQRS measures = - Patient's medications are documented in the chart. -Tobacco use is negative and counseling.Given. -Patient's has not received pneumococcal vaccine. -Advanced care planning discussed, patient not eligible. -Opiate contract not signed. -Pain negative , she will follow up when necessary -Patient's blood pressure measured [176/91 ] , and documented in the record ,and patient will follow up with the primary care. -Patient's weight was measured and body mass index [ 27 ] above the normal limits. and patient instructed to follow-up with the primary care gloria priest. -Patient was not identified as an unhealthy alcohol user PQRS Measure Charge Sheet PQRS Narrative: Smoking Status Former smoker Pain Intensity [Neck] 3 Scale Used Numeric (1 - 10) Hx Alcohol Use (MH) No Home Medications: Ambulatory Orders Acetaminophen [Tylenol] 500 mg PO Q6H PRN 05/19/18 Famotidine [Pepcid AC] 10 mg PO HS 11/24/19 Ascorbic Acid [Vitamin C] 500 mg PO DAILY 02/29/20 Acetaminophen/Diphenhydramine [Tylenol PM 500-25mg] 1 tab PO HS PRN 08/13/20 Controlled Substance Measures - Controlled Substance Measures Is patient prescribed a controlled substance at discharge?: No
== END | disposition home or self-care (01) ==
LOC: PNWHC3 11:04
PROVIDERS: ATTEND Anesthesiology
DX: M50.10 Cervical disc disorder with radiculopathy, unspecified cervical region (principal); Z87.891 Personal history of nicotine dependence; Z79.899 Other long term (current) drug therapy; Z79.891 Long term (current) use of opiate analgesic
CPT/HCPCS: 99211

== ENCOUNTER → 2020-10-22 | Outpatient (CLI) | payer BC ==
[2020-10-22 08:33] VITALS: BP 174/100; PULSE 105; RESP 18; TEMP 98.4
--- NOTE | 2020-10-22 08:44 | P.PN ---
Progress Note - Text Progress Note Date: 10/22/20 (\) Progress Note - Text This is a follow-up visit for this 49 years old female, diagnosed with cervical herniated disc disease and cervical radiculopathy, cervical spondylosis. She was recently evaluated by Dr. Hillman, who recommended an ACDF however patient is unable to take time off work currently because of her financial situation. She is requesting another epidural steroid injection. She's had relief in the past. However with the last one she did not experience much relief. Pain is still in the neck with radiation down the right lower extremity to the fingers described as numb and tingling. Pain is typically worse at night with radiating pain awakening her. she feels a fullness sensation in her right shoulder and biceps area. Does not particularly care for medications and only takes Tylenol if she says helps a little bit. His very active person and is going to just tend to make her pain a little bit worse. She denies any bowel or bladder incontinence or gait abnormalities. In addition to above, 13-point review of systems is also negative for chest pain, shortness of breath, changes in vision, changes in hearing, new onset weakness, abdominal pain, diarrhea, extreme fatigue, malaise, fever, skin changes, homicidal or suicidal ideation, or bowel or bladder incontinence. Physical exam: Gen: A&O 3, NAD, normal BMI HEENT: Atraumatic, normocephalic, pupils equal and reactive to light Integ: No skin abnormalities or lesions noted CVS: Regular rate and rhythm, adequate peripheral pulses Pulmn: Nonlabored, no wheezing Cervical spine: Palpation: No tenderness to palpation Inspection: No deformities or scoliosis Range of motion: Pain with rotation to the right Spurling's test: Positive on the right Facet loading: Negative bilateral Reflexes: 2/2 brachioradialis and triceps Neuromuscular: Sensation: Intact from L1-S1 Motor: Motor strength preserved bilateral upper extremities in the biceps, triceps, wrist flexion, wrist extension. Gait: No gait abnormalities, no assist device utilized Imaging: MRI cervical spine 09/2020: At C5-6 is a broad-based disc protrusion extending into the right neural foramen compresses the right exiting C6 nerve. There is mild to moderate cord compression and canal stenosis. Assessment: 1. Cervical radiculopathy without myelopathy 2. Cervical spinal stenosis 3. Cervical spondylosis without myelopathy. Plan: 1. Explanation: Diagnoses, prognoses, and multiple treatment options including but not limited to physical therapy, interventional therapies, adjuvant medical therapies, narcotic medication therapies, and surgery were discussed with the patient and all questions were answered to the patient's satisfaction. 2. Opioid agreement: Not required 3. Counseling: Patient was counseled on physical rehabilitation and home exercises that can be done. 4. Procedures: Right cervical epidural steroid injection at C6 7 5. Consultations: None at the moment 6. Investigations: MRI cervical spine was reviewed. 7. Medications: None 8. Disposition: Patient will follow up for a series of cervical epidural steroid injections targeting the right C6 7 interspace. Also recommended that she wear a soft cervical collar at night to help mitigate painful radicular pain. PQRS measures on separate sheet.
== END | disposition home or self-care (01) ==
LOC: PNWHC3 08:18
PROVIDERS: ATTEND Anesthesiology
DX: M48.02 Spinal stenosis, cervical region (principal); M47.22 Other spondylosis with radiculopathy, cervical region
CPT/HCPCS: 99211

== ENCOUNTER 2020-11-15 07:27 | Day surgery (SDC) | payer BC ==
[2020-11-14 09:32] VITALS: BMI 27.4
[2020-11-15 07:46] VITALS: TEMP 97.4
[2020-11-15] MEDS ORDERED: fentaNYL (PF) 50 MCG/ML 2 ML AMP ONE (08:19)
[2020-11-15] MEDS ORDERED: IOPAMIDOL M200 10 ML VIAL ONE (08:19)
[2020-11-15] MEDS ORDERED: DEXAMETHASONE SOD PHOSPHATE 10 MG/ML 1 ML VIAL ONE (08:19)
[2020-11-15] MEDS ORDERED: MIDAZOLAM 2 MG/2 ML VIAL ONE (08:19)
--- NOTE | 2020-11-15 08:32 | P.PCN ---
Date of Procedure: 11/15/20 Procedure(s) Performed: PROCEDURE 1. Cervical epidural steroid injection under fluoroscopic guidance, C6-7 ( right paramedial approach ) 2. Cervical epidurogram. PREOPERATIVE DIAGNOSIS: 1- Cervical herniated Disc Diseases 2- Cervical radiculopathy. POSTOPERATIVE DIAGNOSIS: : 1- Cervical Degenerative Disc Diseases , 2- Cervical radiculopathy. ANESTHESIA: Local anesthesia with lidocaine 1 % 3 ml only . EBL 0 PROCEDURE INDICATION: The patient with neck pain and radiculitis unresponsive to conservative treatment consents for procedure. PROCEDURE DESCRIPTION / TECHNIQUE: The patient was seen and identified in the preoperative area. Risks, benefits, complications, including but not limited to infections ,bleeding , allergic reactions to the medications ,and not complete pain releife, and alternatives were discussed with the patient, the patient agreed to proceed with the procedure and signed the consent. Patient was taken to the OR and time out was completed. The patient was placed in the prone position on the procedure table. A pillow was placed under the patients chest to increase the cervical interlaminar space. The cervical area was prepped and draped in the usual sterile fashion. Vital signs were closely monitored during the procedure. Using anterior-posterior fluoroscopy, the C6-7 interlaminar space was identified and the skin over this site was marked and then infiltrated with 1% lidocaine subcutaneously. Subsequently, a 20-gauge 3-1/2-inch Tuohy epidural needle was inserted and advanced toward the right side of epidural space by means of the ``hanging-drop technique and guided by AP and lateral fluoroscopy. The correct needle position in the epidural space was verified with the injection of 2 mL of the water soluble contrast dye Isovue-200 and observing an excellent epidurogram with the epidural spread of the dye, after negative aspiration for blood and CSF and in the absence of paresthesias. Again after negative aspiration, mixture containing 20 mg Dexamethasone and 2 ml of preservative- free normal saline injected and a washout of epidurogram was seen. Needle was withdrawn intact, skin was cleansed, and bandages were applied. Complications= none. Disposition= patient was placed in supine position and transferred to the recovery room area in stable condition and there was no evidence of upper or lower extremity motor or sensory deficit after the procedure patient was discharged from recovery room after discharge criteria met and home discharge instructions was given by the staff and patient will follow with the pain clinic in 2-4 weeks
[2020-11-15] MEDS ORDERED: IV FLUID CONTINUATION 1,000 ML IV ONE (08:37)
[2020-11-15 08:39] VITALS: RESP 18
[2020-11-15 08:53] VITALS: BP 148/87; PULSE 79
--- NOTE | 2020-11-15 09:00 | FL ---
Fluoroscopy HISTORY: Pain 2 seconds fluoroscopy time supplied to the referring clinician. 1 intraoperative C-arm images docume nt the procedure. See dictated report from anesthesia.
== END 2020-11-15 09:08 | disposition home or self-care (01) ==
LOC: ORPAIN 07:27
PROVIDERS: ATTEND Specialist
DX: M50.10 Cervical disc disorder with radiculopathy, unspecified cervical region (principal); Z88.1 Allergy status to other antibiotic agents; Z88.0 Allergy status to penicillin
CPT/HCPCS: 81025; 62321; J2250; J1100; J3010; Q9966

== ENCOUNTER → 2020-11-26 | Outpatient (CLI) | payer BC ==
[2020-11-26 08:36] VITALS: BP 172/105; PULSE 97; RESP 16; TEMP 98.3
--- NOTE | 2020-11-26 08:45 | P.PN ---
Subjective Progress Note Date: 11/26/20 this is a 50-year-old lady with history of right cervical radiculopathy with pain which extends from her neck down to the right hand especially to the right thumb with numbness in the right thumb. The patient had cervical epidural steroid injection about 2 weeks ago and she had 75% of pain relief after the injection. The patient has disc protrusion at the C5 6 level with compression of the C6 nerve root on the right side with mild to moderate cord compression a nd canal stenosis. Patient denies new-onset weakness, bowel/bladder incontinence, or any other signs or symptoms of cauda equina syndrome. There are no signs of acute intoxication, and no indications of medication diversion or overuse. In addition to above, 13-point review of systems is also negative for chest pain, shortness of breath, changes in vision, changes in hearing, new onset weakness, abdominal pain, diarrhea, extreme fatigue, malaise, fever, skin changes, homicidal or suicidal ideation, or bowel or bladder incontinence. Vital Signs: Reviewed in EMR Gen: AAOx3, NAD HEENT: PERRLA,hearing grossly normal Pulm: resp unlabored Neck: supple, trachea midline Neuro exam of the upper extremities:Normal muscle strength in the upper extremities bilaterally Straight leg raising test: Loyd's test: Range of motion of the lumbar spine: Facet loading test: Tenderness in the paravertebral musculature:no tenderness in the cervical paravertebral musculature or around the right trapezius muscle Neuro: CN II-XII grossly intact, Imaging: Reviewed in EMR/chart Assessment: right cervical radiculopathy due to disc protrusion at the C5 6 level with mild to moderate cord compression and canal stenosis. at least 75% improvement in the patient's pain after the first cervical epidural steroid injection which was done about 2 weeks ago. Plan: 1. Explanation: Opioid and psychological risk scores were reviewed. Diagnoses, prognoses, and multiple treatment options including but not limited to physical therapy, interventional therapies, adjuvant medical therapies, narcotic medi cation therapies, and surgery were discussed with the patient and all questions were answered to the patient's satisfaction. 2. Opioid agreement: Signed with the patient and the patient is warned not to use opioids while driving or before driving and not to combine opioids with benzodiazepines or alcohol. 3. Counseling: The patient was counseled extensively on SMOKING CESSATION, BODY MASS INDEX, EXERCISE. Specifically, the patient was instructed regarding the importance of smoking cessation, obesity, and exercise in the context of both chronic pain and overall health. 4. Procedures: we'll schedule the patient for a second cervical epidural steroid injection 5. Consultations: None 6. Investigations: None 7. Medications: none 8. Disposition: proceed with the above-mentioned procedure 9. Maps were reviewed and were appropriate. Objective - Vital Signs Vital signs: Vital Signs Temp 98.3 F 11/26/20 08:20 Pulse 97 11/26/20 08:20 Resp 16 11/26/20 08:20 BP 172/105 11/26/20 08:20 Pulse Ox 97 11/26/20 08:20
== END | disposition home or self-care (01) ==
LOC: PNWHC3 08:02
PROVIDERS: ATTEND Anesthesiology
DX: M50.122 Cervical disc disorder at C5-C6 level with radiculopathy (principal); M48.02 Spinal stenosis, cervical region; G95.20 Unspecified cord compression
CPT/HCPCS: 99211

== ENCOUNTER 2020-12-04 07:36 | Day surgery (SDC) | payer BC ==
[2020-12-03 09:40] VITALS: BMI 28.0
[2020-12-04 08:08] VITALS: RESP 16; TEMP 97.2
[2020-12-04] MEDS ORDERED: fentaNYL (PF) 50 MCG/ML 2 ML AMP ONE (08:40)
[2020-12-04] MEDS ORDERED: MIDAZOLAM 2 MG/2 ML VIAL ONE (08:40)
[2020-12-04] MEDS ORDERED: IOPAMIDOL M200 10 ML VIAL ONE (08:40)
[2020-12-04] MEDS ORDERED: DEXAMETHASONE SOD PHOSPHATE 10 MG/ML 1 ML VIAL ONE (08:40)
--- NOTE | 2020-12-04 08:53 | P.PCN ---
Date of Procedure: 12/04/20 Procedure(s) Performed: PROCEDURE 1. Cervical epidural steroid injection under fluoroscopic guidance, C6-7 ( right paramedial approach ) 2. Cervical epidurogram. PREOPERATIVE DIAGNOSIS: 1- Cervical herniated Disc Diseases 2- Cervical radiculopathy. POSTOPERATIVE DIAGNOSIS: : 1- Cervical Degenerative Disc Diseases , 2- Cervical radiculopathy. ANESTHESIA:Moderate sedations with Versed 2 mg , fentanyl 50 g ,and Local anesthesia with lidocaine 1 % 3 ml . EBL 0 PROCEDURE INDICATION: The patient with neck pain and radiculitis unresponsive to conservative treatment consents for procedure. PROCEDURE DESCRIPTION / TECHNIQUE: The patient was seen and identified in the preoperative area. Risks, benefits, complications, including but not limited to infections ,bleeding , allergic reactions to the medications ,and not complete pain releife, and alternatives were discussed with the patient, the patient agreed to proceed with the procedure and signed the consent. Patient was taken to the OR and time out was completed. The patient was placed in the prone position on the procedure table. A pillow was placed under the patients chest to increase the cervical interlaminar space. The cervical area was prepped and draped in the usual sterile fashion. Motor sedation was given to decrease the patient's anxiety, Vital signs were closely monitored during the procedure. Using anterior-posterior fluoroscopy, the C6-7 interlaminar space was identified and the skin over this site was marked and then infiltrated with 1% lidocaine subcutaneously. Subsequently, a 20-gauge 3-1/2-inch Tuohy epidural needle was inserted and advanced toward the right side of epidural space by means of the `` hanging-drop technique and guided by AP and lateral fluoroscopy. The correct needle position in the epidural space was verified with the injection of 2 mL of the water soluble contrast dye Isovue-200 and observing an excellent epidurogram with the epidural spread of the dye, after negative aspiration for blood and CSF and in the absence of paresthesias. Again after negative aspiration, mixture containing 20 mg Dexamethasone and 2 ml of preservative- free normal saline injected and a washout of epidurogram was seen. Needle was withdrawn intact, skin was cleansed, and bandages were applied. Complications= none. Disposition= patient was placed in supine position and transferred to the recovery room area in stable condition and there was no evidence of upper or lower extremity motor or sensory deficit after the procedure patient was discharged from recovery room after discharge criteria met and home discharge instructions was given by the staff and patient will follow with the pain clinic in 2-4 weeks
[2020-12-04] MEDS ORDERED: IV FLUID CONTINUATION 1,000 ML IV ONE (08:56)
--- NOTE | 2020-12-04 09:06 | FL ---
EXAMINATION TYPE: FL guided pain mgmt statistic DATE OF EXAM: 12/04/2020 FLUOROSCOPY Fluoroscopy time of 2 seconds was used during right cervical epidural steroid injection. 1 image/s d ocument/s the procedure.
[2020-12-04 09:16] VITALS: BP 137/87; PULSE 84
== END 2020-12-04 09:28 | disposition home or self-care (01) ==
LOC: ORPAIN 07:36
PROVIDERS: ATTEND Specialist
DX: M50.10 Cervical disc disorder with radiculopathy, unspecified cervical region (principal); Z88.6 Allergy status to analgesic agent; Z88.0 Allergy status to penicillin; Z88.7 Allergy status to serum and vaccine; Z88.8 Allergy status to other drugs, medicaments and biological substances
CPT/HCPCS: 81025; 62321; J2250; J1100; J3010; Q9966

== ENCOUNTER → 2020-12-26 | Outpatient (CLI) | payer BC ==
[2020-12-26 09:30] VITALS: BP 147/91; PULSE 72; RESP 18; TEMP 98.3
--- NOTE | 2020-12-26 09:40 | P.PN ---
Progress Note - Text Progress Note Date: 12/26/20 This is a follow-up visit for this 49 years old female, diagnosed with cervical herniated disc disease and cervical radiculopathy, cervical spondylosis, status post cervical epidural steroid injection x2 ,and that helped her neck pain significantly, she did very well, and she had excellent pain relief, she denies any motor or sensory deficit she denies any change in the bowel movement or urination, she denies any fever or night sweats., She uses Motrin [id number] once or twice a week since the injection Physical examination -Constitutiona : Cooperative , not in acute distress . -HEENT : nech : supple , no Lymphadenopathy , normal thyroid size . : eyes : no ptosis , no icterus, no photophobia . - neurologic : Cranial nerve II to XII intact , no focal neurological deffecit . -psychatric : alert , oriented X 3 , appropriate affect , intact judgment and insight . -Lymphatic : no Lymphadenopathy . - musculoskeltal : Cervical Spine motor stregnth in the deltoid and biceps, normal right side , normal Left side motor stregnth biceps and the wrist extensors normal right side ,normal left side . Lumber spine moter stegnth lower extremities ,thigh and legs 5/5 Right side , 5/5 Left side Assessment and plan= cervical radiculopathy, cervical herniated disc disease. Symptoms improved after cervical epidural steroid injection x2 Patient will follow up in the pain clinic when necessary , in the future we can repeat cervical epidural steroid injection if needed - PQRS measures = - Patient's medications are documented in the chart. -Tobacco use is negative and counseling.Given. -Patient's has not received pneumococcal vaccine. -Advanced care planning discussed, patient not eligible. -Opiate contract not signed. -Pain positive and follow-up visit/procedure is scheduled. -Patient's blood pressure measured [ 147/91 ] , and documented in the record ,and patient will follow up with the primary care. -Patient's weight was measured and body mass index [28 ] above the normal limits and counseling was done. and patient instructed to follow-up with the primary care physician. -Patient was not identified as an unhealthy alcohol user
== END ==
LOC: PNWHC3 09:08
PROVIDERS: ATTEND Specialist
DX: M47.22 Other spondylosis with radiculopathy, cervical region (principal); M50.20 Other cervical disc displacement, unspecified cervical region
CPT/HCPCS: 99211

== ENCOUNTER → 2021-01-21 | Outpatient (CLI) | payer BC ==
--- NOTE | 2021-01-22 08:48 | MM ---
Reason for exam: screening (asymptomatic). Last mammogram was performed 1 year and 2 months ago. History: Benign excisional biopsy of the right breast, April 10, 2008. Physical Findings: A clinical breast exam by your physician is recommended on an annual basis and results should be correlated with mammographic findings. MG Screening Mammo w CAD Bilateral CC and MLO view(s) were taken. Prior study comparison: December 05, 2019, bilateral MG screening mammo w CAD. October 13, 2018, bilateral MG screening mammo w CAD. The breast tissue is heterogeneously dense. This may lower the sensitivity of mammography. There are benign appearing dystrophic calcifications in the left breast. There is no discrete abnormality. ASSESSMENT: Benign, BI-RAD 2 RECOMMENDATION: Routine screening mammogram of both breasts in 1 year.
== END | disposition home or self-care (01) ==
LOC: RADMAMWWP 08:22
PROVIDERS: ATTEND Family Medicine
DX: Z12.31 Encounter for screening mammogram for malignant neoplasm of breast (principal)
CPT/HCPCS: 77067

== ENCOUNTER → 2021-09-04 | Outpatient (CLI) | payer BC ==
[2021-09-04 08:47] VITALS: BP 159/91; PULSE 91; RESP 18; TEMP 98.1
--- NOTE | 2021-09-04 08:57 | P.PN ---
Subjective Progress Note Date: 09/04/21 This is a follow-up visit for this 51 years old female, diagnosed with cervical herniated disc disease, cervical radiculopathy, cervical spondylosis, previousley we have done cervical epidural steroid injection , and that helped her neck pain significantly(had more than 80% improvement of her neck pain after the injections ), she did very well until a few weeks ago, when she started complaining of severe neck pain with radiation to the right upper extremity associated with severe numbness and tingling sensation, she denies any motor or sensory deficit she denies any change in the bowel movement or urination, she denies any fever or night sweats. Physical Examinations : -Constitutiona : Cooperative , not in acute distress . -HEENT : nech : supple , no Lymphadenopathy , normal thyroid size . : eyes : no ptosis , no icterus, no photophobia . - neurologic : Cranial nerve II to XII intact , no focal neurological deffecit . -psychatric : alert , oriented X 3 , appropriate affect , intact judgment and insight . -Lymphatic : no Lymphadenopathy . - musculoskeltal : Cervical Spine motor stregnth in the deltoid and biceps, normal right side , normal Left side motor stregnth biceps and the wrist extensors normal right side ,normal left side . motor stregnth in the triceps muscle . normal Right side , normal Left side deep tendon reflexes normal at the biceps , normal at Brachioradialis , normal at triceps. cervical facet loading test: Negative Bilaterally Spurling test positive . Neck distraction test positive . Alena sign positive Lumber spine moter stegnth lower extremities ,thigh and legs 5/5 Right side , 5/5 Left side Assessment and plan= cervical radiculopathy. Cervical disc herniation. Patient could benefit from cervical epidural steroid injection under fluoroscopy guidance at C6-7 (right paramedian approach ) Procedure risk and benefits and alternatives discussed with the patient she agreed with proceeding Time with Patient: Less than 30 PQRS Measure Charge Sheet Measure #130: Documentation of Current Meds in Medical Chart: Patient's medications documented in chart Measure #226: Tobacco Use: Screen & Cessation Intervention: Pt not a tobacco user Measure #111: Pneumonia Vaccination: Pneumococcal vaccine NOT administered or previously given Measure #47: Advance Care Plan: Advance care planning discussed & documented, pt chose/unable to give Measure #412: Opioid Treatment Agreement: No documentation of signed opioid treatment agreement Measure #408: Opioid Therapy Follow-up Evaluation: Patient had NO f/u eval minimum every 3 months during opioid therapy Measure #317: Preventitive Care & Scrn High Bld Press & F/U: Pre-hypertensive or hypertensive BP documented, pt will f/u with PCP Measure #128: Body Mass Index (BMI) Screening & Follow-up: BMI documented ABOVE normal parameters - f/u documented Measure #131: Pain Assessment & Follow-up: Pain positive & plan documented, Follow-up scheduled Measure #431: Unhealthy Alcohol Use Preventative Care & Scrn: Patient not identified as an unhealthy alcohol user PQRS Narrative: Objective - Vital Signs Vital signs: Vital Signs Temp 98.1 F 09/04/21 08:34 Pulse 91 09/04/21 08:34 Resp 18 09/04/21 08:34 BP 159/91 09/04/21 08:34 Pulse Ox 98 09/04/21 08:34
== END | disposition home or self-care (01) ==
LOC: PNWHC3 08:04
PROVIDERS: ATTEND Specialist
DX: M50.20 Other cervical disc displacement, unspecified cervical region (principal); M54.12 Radiculopathy, cervical region
CPT/HCPCS: 99211

== ENCOUNTER 2021-09-13 07:43 | Day surgery (SDC) | payer BC ==
[2021-09-13 08:06] VITALS: RESP 16; TEMP 97.3
[2021-09-13] MEDS ORDERED: LACTATED RINGERS 1,000 ML IV ONE ×2 (08:17)
[2021-09-13] MEDS ORDERED: MIDAZOLAM 2 MG/2 ML VIAL ONE (08:34)
[2021-09-13] MEDS ORDERED: DEXAMETHASONE SOD PHOSPHATE 10 MG/ML 1 ML VIAL ONE (08:34)
[2021-09-13] MEDS ORDERED: .fentaNYL (PF) 50 MCG/ML 2 ML AMP ONE (08:34)
[2021-09-13] MEDS ORDERED: IOPAMIDOL M200 10 ML VIAL ONE (08:34)
--- NOTE | 2021-09-13 08:46 | P.PCN ---
Date of Procedure: 09/13/21 Procedure(s) Performed: PROCEDURE 1. Cervical epidural steroid injection under fluoroscopic guidance, C6-7 ( right paramedial approach ) 2. Cervical epidurogram. (Fluoroscopy images available at the radiology Department ) PREOPERATIVE DIAGNOSIS: 1- Cervical herniated Disc Diseases 2- Cervical radiculopathy. POSTOPERATIVE DIAGNOSIS: : 1- Cervical Degenerative Disc Diseases , 2- Cervical radiculopathy. ANESTHESIA:Monitered anesthesia care as per anesthesia department. EBL 0 PROCEDURE INDICATION: The patient with neck pain and radiculitis unresponsive to conservative treatment consents for procedure. PROCEDURE DESCRIPTION / TECHNIQUE: The patient was seen and identified in the preoperative area. Risks, benefits, complications, including but not limited to infections ,bleeding , allergic reactions to the medications ,and not complete pain releife, and alternatives were discussed with the patient, the patient agreed to proceed with the procedure and signed the consent. Patient was taken to the OR and time out was completed. The patient was placed in the prone position on the procedure table. A pillow was placed under the patients chest to increase the cervical interlaminar space. The cervical area was prepped and draped in the usual sterile fashion. Motor sedation was given to decrease the patient's anxiety, Vital signs were closely monitored during the procedure. Using anterior-posterior fluoroscopy, the C6-7 interlaminar space was identified and the skin over this site was marked and then infiltrated with 1% lidocaine subcutaneously. Subsequently, a 20-gauge 3-1/2-inch Tuohy epidural needle was inserted and advanced toward the right side of epidural space by means of the ``hanging-drop technique and guided by AP and lateral fluoroscopy. The correct needle position in the epidural space was verified with the injection of 2 mL of the water soluble contrast dye Isovue-200 and observing an excellent epidurogram with the epidural spread of the dye, after negative aspiration for blood and CSF and in the absence of paresthesias. Again after negative aspira tion, mixture containing 20 mg Dexamethasone and 2 ml of preservative-free normal saline injected and a washout of epidurogram was seen. Needle was withdrawn intact, skin was cleansed, and bandages were applied. Complications= none. Disposition= patient was placed in supine position and transferred to the recovery room area in stable condition and there was no evidence of upper or lower extremity motor or sensory deficit after the procedure patient was discharged from recovery room after discharge criteria met and home discharge instructions was given by the staff and patient will follow with the pain clinic in 2-4 weeks
[2021-09-13 09:03] VITALS: BP 116/77; PULSE 80
[2021-09-13] MEDS ORDERED: IV FLUID CONTINUATION 1,000 ML IV ONE (09:14)
--- NOTE | 2021-09-13 15:27 | FL ---
Fluoroscopy HISTORY: Pain 2 seconds fluoroscopy time supplied to the referring clinician. 1 intraoperative C-arm images docume nt the procedure. See dictated report from anesthesia.
== END 2021-09-13 09:14 | disposition home or self-care (01) ==
LOC: ORPAIN 07:43
PROVIDERS: ATTEND Specialist
DX: M50.20 Other cervical disc displacement, unspecified cervical region (principal); M54.12 Radiculopathy, cervical region
CPT/HCPCS: 62321; 81025; J2250; J1100; J3010; Q9966

== ENCOUNTER 2021-11-12 06:19 | Day surgery (SDC) | payer BC ==
[2021-11-12 06:46] VITALS: TEMP 96.8
[2021-11-12] MEDS: LACTATED RINGERS 1,000 ML IV SCH ×2 (06:48→06:53)
[2021-11-12] MEDS ORDERED: fentaNYL (PF) 50 MCG/ML 2 ML AMP ONE (06:53)
[2021-11-12] MEDS ORDERED: IOPAMIDOL M200 10 ML VIAL ONE (06:53)
[2021-11-12] MEDS ORDERED: MIDAZOLAM 2 MG/2 ML VIAL ONE (06:53)
[2021-11-12] MEDS ORDERED: DEXAMETHASONE SOD PHOSPHATE 10 MG/ML 1 ML VIAL ONE (06:53)
--- NOTE | 2021-11-12 07:08 | P.PCN ---
Date of Procedure: 11/12/21 Procedure(s) Performed: PROCEDURE 1. Cervical epidural steroid injection under fluoroscopic guidance, C6-7 ( right paramedial approach ) 2. Cervical epidurogram. (Fluoroscopy images available at the radiology Department ) PREOPERATIVE DIAGNOSIS: 1- Cervical herniated Disc Diseases 2- Cervical radiculopathy. POSTOPERATIVE DIAGNOSIS: : 1- Cervical Degenerative Disc Diseases , 2- Cervical radiculopathy. ANESTHESIA:moderate sedations with versed 2 mg ,and Fentanyle 100 mcg . EBL 0 PROCEDURE INDICATION: The patient with neck pain and radiculitis unresponsive to conservative treatment consents for procedure. PROCEDURE DESCRIPTION / TECHNIQUE: The patient was seen and identified in the preoperative area. Risks, benefits, complications, including but not limited to infections ,bleeding , allergic reactions to the medications ,and not complete pain releife, and alternatives were discussed with the patient, the patient agreed to proceed with the procedure and signed the consent. Patient was taken to the OR and time out was completed. The patient was placed in the prone position on the procedure table. A pillow was placed under the patients chest to increase the cervical interlaminar space. The cervical area was prepped and draped in the usual sterile fashion. Motor sedation was given to decrease the patient's anxiety, Vital signs were closely monitored during the procedure. Using anterior-posterior fluoroscopy, the C6-7 interlaminar space was identified and the skin over this site was marked and then infiltrated with 1% lidocaine subcutaneously. Subsequently, a 20-gauge 3-1/2-inch Tuohy epidural needle was inserted and advanced toward the right side of epidural space by means of the ``hanging-drop technique and guided by AP and lateral fluoroscopy. The correct needle position in the epidural space was verified with the injection of 2 mL of the water soluble contrast dye Isovue-200 and observing an excellent epidurogram with the epidural spread of the dye, after negative aspiration for blood and CSF and in the absence of paresthesias. Again after negative aspiration, mixture containing 20 mg Dexamethasone and 2 ml of preservative- free normal saline injected and a washout of epidurogram was seen. Needle was withdrawn intact, skin was cleansed, and bandages were applied. Complications= none. Disposition= patient was placed in supine position and transferred to the recovery room area in stable condition and there was no evidence of upper or lower extremity motor or sensory deficit after the procedure patient was discharged from recovery room after discharge criteria met and home discharge instructions was given by the staff and patient will follow with the pain clinic in 2-4 weeks
[2021-11-12] MEDS ORDERED: IV FLUID CONTINUATION 700 ML IV ONE (07:16)
[2021-11-12] MEDS ORDERED: LACTATED RINGERS 1,000 ML IV ONE (07:16)
[2021-11-12 07:20] VITALS: RESP 16
--- NOTE | 2021-11-12 07:42 | FL ---
EXAMINATION TYPE: FL guided pain mgmt statistic DATE OF EXAM: 11/12/2021 CLINICAL HISTORY: Neck pain. TECHNIQUE: Fluoroscopy. COMPARISON: None. FINDINGS: Fluoroscopic guidance was provided during pain relief procedure performed by Dr. Johnson . A total of 2 seconds of fluoroscopic time was utilized during the procedure and 1 spot images are acquired. Single image acquired shows needle localization at roughly C5 level. IMPRESSION: As Above.
[2021-11-12 07:48] VITALS: BP 127/81; PULSE 82
== END 2021-11-12 07:56 | disposition home or self-care (01) ==
LOC: ORPAIN 06:19
PROVIDERS: ATTEND Specialist
DX: M50.10 Cervical disc disorder with radiculopathy, unspecified cervical region (principal)
CPT/HCPCS: 81025; 62321; J2250; J1100; J3010; Q9966; 99152

== ENCOUNTER → 2021-12-02 | Outpatient (CLI) | payer BC ==
--- NOTE | 2021-12-02 08:46 | P.PN ---
Subjective Progress Note Date: 12/02/21 Principal diagnosis: A 51 yr old female with a history of severe and chronic neck pain secondary to cervical degenerative disc diseases and spondylosis with facet arthropathy presents today for evaluation status post TRISHA C6-C7. Patient states she experienced 80% pain relief with the last procedure and has eliminated all headache pain. She admits to lingering right neck and shoulder pain with radiation of numbness to the right thumb. Early 3 out of 10 in intensity, const ant, dull, achy and provoked with forward flexion of the cervical spine. Pain is alleviated with Tylenol, injections, heat, physical therapy on and off for the last 10 years, massage therapy, heating pad use and rest. Interventional pain procedures completed include TRISHA C7-T1 & C6-C7 Patient is currently on Tylenol OTC Patient denies any side effects of the medication(s), denies excessive drowsi ness or sleepiness, denies suicidal ideation and reports that the current pain medication is helping to control the pain and improve activities of daily living. Patient denies any motor or sensory deficits. Patient denies any fever or night sweats, denies any change in the bowel movements or urination. Physical Examination: -Constitutional: Cooperative. Not in acute distress . -HEENT: Neck is supple. No lymphadenopathy. No thyromegaly. Normal thyroid size. Eyes: No ptosis , no icterus, no photophobia. ENT: No auditory deficits. Normal oropharynx. No Thrush. - Respiratory: Chest clear to auscultations bilaterally. No wheezing. No rhonchi. - Cardiovascular: Regular rate and rhythm. S1 / S2 , no S3 , no S4. - Gastrointestinal: Abdomen soft no tenderness. Bowel sounds positive in all four quadrants. No organomegaly. - Genitourinary: Deferred. - Neurologic: Cranial nerve II to XII intact. No focal neurological deficits. - Psychatric: Alert & oriented x 3. Matching mood & appropriate affect. Judgment and insight intact. - Lymphatic: No Lymphadenopathy. - Musculoskeletal: Cervical spine: Muscle bulk/ tone/ strength in the bilateral upper extremities normal. Vertebral body tenderness over C6 Spurling test positive Distraction test positive Facet loading test cervical area positive. Lumbar spine: Motor bulk/ tone/ strength lower extremities , thigh and legs : 5/5 Deep tendon reflexes : Normal Knee Jerk. Normal Ankle Jerk . Vertebral body tenderness to palpation over Lumbar Facet Loading Test positive Straight Leg Raise: positive at 30 degrees right side/ left side Gaenslen's Test positive Sacral spine : Severe tenderness over the Sacroiliac joint: right side / left side Range of motion: Flexion of the lumbar spine <60 degrees Range of motion: Extension of the lumbar spine <20 degrees Gaenslen's Test positive Sera test: positive right side / left side Assessment and plan: Chronic neck pain secondary to apical degenerative disc disease , spondylosis with facet arthropathy without myelopathy Recommendation of right TFESI C6-C7 Denies anticoagulants use or history of diabetes. All patient questions answered MAPS reviewed and it was appropriate. I have spent 31 minutes on patient care today. Dr Johnson was available by phone for the evaluation of this patient. The time was used to review the medical records including relevant urine studies and Prescription history (MAPs), review of the available imaging, evaluation and examination of the patient, coordination of care with the medical staff and if applicable referring physicians, as well as creation of the medical record PQRS Measure Charge Sheet PQRS Narrative: Smoking Status Former smoker Pain Intensity [Neck] 4 Hx Alcohol Use (MH) No Home Medications: Ambulatory Orders Acetaminophen [Tylenol] 500 mg PO Q6H PRN 05/19/18 Famotidine [Pepcid AC] 10 mg PO HS 11/24/19 Ascorbic Acid [Vitamin C] 500 mg PO DAILY 02/29/20 Acetaminophen/Diphenhydramine [Tylenol PM 500-25mg] 1 tab PO HS PRN 08/13/20 Losartan [Cozaar] 25 mg PO DAILY 09/02/21
[2021-12-02 09:50] VITALS: BP 150/92; PULSE 97; RESP 18; TEMP 98.1
== END | disposition home or self-care (01) ==
LOC: PNWHC3 07:51
PROVIDERS: ATTEND Physician Assistant Medical
DX: M47.892 Other spondylosis, cervical region (principal); M50.30 Other cervical disc degeneration, unspecified cervical region
CPT/HCPCS: 99211

== ENCOUNTER → 2021-12-26 | Day surgery (SDC) | payer BC ==
[2021-12-24 10:37] VITALS: BMI 28.5
[~2021-12-26] MED LIST changes: +DEXAMETHASONE SOD PHOSPHATE 10 MG/ML 1 ML VIAL ONE; +IOPAMIDOL M200 10 ML VIAL ONE; +IV FLUID CONTINUATION 1,000 ML IV ONE; -LACTATED RINGERS 1,000 ML IV SCH; +LIDOCAINE 1% (10MG/ML) FOR IV START INTRADERMA PRN; +MIDAZOLAM 2 MG/2 ML VIAL ONE; +fentaNYL (PF) 50 MCG/ML 2 ML AMP ONE
[2021-12-26 07:33] VITALS: RESP 16; TEMP 97
[2021-12-26] MEDS: LACTATED RINGERS 1,000 ML IV SCH ×2 (07:39→07:41)
--- NOTE | 2021-12-26 08:04 | P.PCN ---
Date of Procedure: 12/26/21 Procedure(s) Performed: PREOPERATIVE DIAGNOSIS:1- Cervical radiculopathy . 2-cervical herniated disc disease POSTOPERATIVE DIAGNOSIS: Same as preoperative diagnoses. PROCEDURE 1. Transforaminal epidural steroid injection under fluoroscopic guidance at right C6-7 level. (Fluoroscopy images stored on file in the radiology Department ) 2. Cervical epidurogram . ANESTHESIA: Local with 1% lidocaine 3 ml , moderate sedation with intravenous Ve rsed 2 mg and fentanyle 100 micrograms. EBL: Minimal PROCEDURE INDICATION: The patient with low back pain and radiculopathy symptoms unresponsive to conservative treatment. PROCEDURE DESCRIPTION / TECHNIQUE: The patient was seen and identified in the preoperative area. Risks, benefits, complications, and alternatives were discussed with the patient. The patient agreed to proceed with the procedure and signed the consent. IV was started, and vital signs were stable. Patient was taken to the OR and time out was completed. The patient was placed in the supine position on procedure table . The cervical area was prepped and draped in the usual sterile fashion. Critical pause was taken. Vital signs were closely monitored during the procedure. Conscious sedation was used during the procedure to decrease patient s anxiety. Using oblique fluoroscopy, the chin of the ``Peter dog at right C6-7 level was identified, and the skin and deeper tissues just below was localized with 1% lidocaine. Subsequently, a 22-gauge 3.5-inch spinal needle was advanced under a tunneled view fluoroscopic guidance just underneath the chin of the ``Peter dog at the right C6-7 Under lateral fluoroscopy, the needle was then advanced to the posterior border of the interforaminal space. After negative aspiration of CSF and blood and with no paresthesias, 1 mL Isovue 200 contrast dye was injected excellent epidurogram and outlining of the nerve root Subsequently, 3 mL of block solution containing 20 mg Dexamethasone and 1 mL of 0.9% normal saline PF was injected. Needle was removed . At the end of the procedure, skin was cleansed, and bandages were applied. COMPLICATIONS:none DISPOSITION / PLANS: The patient was placed in a supine position and transferred to the recovery area in a stable condition for observation. There was no evidence of lower extremity motor or sensory deficit after the procedure. Patient was discharged from the recovery room after meeting discharge criteria. Home discharge instructions were given to the patient by the staff. The patient was reexamined prior to discharge.
[2021-12-26 08:08] VITALS: BP 124/78
[2021-12-26 08:23] VITALS: PULSE 76
--- NOTE | 2021-12-26 08:58 | FL ---
EXAMINATION TYPE: FL guided pain mgmt statistic DATE OF EXAM: 12/26/2021 CLINICAL HISTORY: Transforaminal epidural injection TECHNIQUE: Fluoroscopic-guided transforaminal epidural injection COMPARISON: Similar procedure dated 11/12/2021 FINDINGS: Fluoroscopic guidance was provided during the procedure. A total of 21 seconds of fluorosc opic time was utilized during the procedure and 2 spot images were acquired. IMPRESSION: As Above.
== END | disposition home or self-care (01) ==
LOC: ORPAIN 07:02
PROVIDERS: ATTEND Specialist
DX: M50.10 Cervical disc disorder with radiculopathy, unspecified cervical region (principal)
CPT/HCPCS: 64483; 81025; J2250; J1100; J3010; Q9966; 99152

== ENCOUNTER → 2022-01-13 | Outpatient (CLI) | payer BC ==
[2022-01-13 08:57] VITALS: BP 156/91; PULSE 97; RESP 18; TEMP 97.8
--- NOTE | 2022-01-13 09:03 | P.PN ---
Subjective Progress Note Date: 01/13/22 Principal diagnosis: A 51 yr old female with a history of severe and chronic neck pain secondary to degenerative disc diseases and spondylosis with facet arthropathy presents today for evaluation s/p R TFESI C6-C7 #3. Patient states she experienced 60% pain relief status post procedure. Pain level is currently at 2 out of 10 in intensity, constant, neck pain in the base of the neck that is provoked with stress and activity to a level of 7 out of 10 in intensity. Pain is alleviated with medications, injections, heat, physical therapy in the past, daily home stretching regimen, cervical traction integrated with PT in the past and rest. Interventional pain procedures completed include R TFESI C6-C7 #3 Patient is currently on Tylenol OTC Patient denies any side effects of the medication(s), denies excessive drowsiness or sleepiness, denies suicidal ideation and reports that the current pain medication is helping to control the pain and improve activities of daily living. Patient denies any motor or sensory deficits. Patient denies any fever or night sweats, denies any change in the bowel movements or urination. Physical Examination: -Constitutional: Cooperative. Not in acute distress . -HEENT: Neck is supple. No lymphadenopathy. No thyromegaly. Normal thyroid size. Eyes: No ptosis , no icterus, no photophobia. ENT: No auditory deficits. Normal oropharynx. No Thrush. - Respiratory: Chest clear to auscultations bilaterally. No wheezing. No rhonchi. - Cardiovascular: Regular rate and rhythm. S1 / S2 , no S3 , no S4. - Gastrointestinal: Abdomen soft no tenderness. Bowel sounds positive in all four quadrants. No organomegaly. - Genitourinary: Deferred. - Neurologic: Cranial nerve II to XII intact. No focal neurological deficits. - Psychatric: Alert & oriented x 3. Matching mood & appropriate affect. Judgment and insight intact. - Lymphatic: No Lymphadenopathy. - Musculoskeletal: Cervical spine: Muscle bulk/ tone/ strength in the bilateral upper extremities normal. Vertebral body tenderness to palpation over C6 Facet loading test cervical area positive. Lumbar spine: Motor bulk/ tone/ strength lower extremities , thigh and legs : 5/5 Deep tendon reflexes : Normal Knee Jerk. Normal Ankle Jerk . Vertebral body tenderness to palpation over Lumbar Facet Loading Test positive Straight Leg Raise: positive at 30 degrees right side/ left side Gaenslen's Test positive Sacral spine : Severe tenderness over the Sacroiliac joint: right side / left side Range of motion: Flexion of the lumbar spine <60 degrees Range of motion: Extension of the lumbar spine <20 degrees Gaenslen's Test positive Sera test: positive right side / left side Assessment and plan: Chronic neck pain secondary to degenerative disc disease , spondylosis with facet arthropathy without myelopathy Discussed TRISHA holiday and to revisit injections in the future if indicated Discussed use of cervical traction devices and intergrated massage therapy All patient questions answered MAPS reviewed and it was appropriate. I have spent 31 minutes on patient care today. Dr Johnson was available by phone for the evaluation of this patient. The time was used to review the medical records including relevant urine studies and Prescription history (MAPs), review of the available imaging, evaluation and examination of the patient, coordination of care with the medical staff and if applicable referring physicians, as well as creation of the medical record Objective - Vital Signs Vital signs: Vital Signs Temp 97.8 F 01/13/22 08:53 Pulse 97 01/13/22 08:53 Resp 18 01/13/22 08:53 BP 156/91 01/13/22 08:53 Pulse Ox 96 01/13/22 08:53 PQRS Measure Charge Sheet Mode of Arrival: Ambulatory - Pain Location Neck Non-Pharmacological Interventions: Heat, Home Exercise, Physical Therapy, Stretching Pharmacological Interventions: Epidural, PRN Medication PQRS Narrative: Smoking Status Former smoker Blood Pressure 156/91 Pain Intensity [Neck] 2 Scale Used Numeric (1 - 10) Hx Alcohol Use (MH) No Home Medications: Ambulatory Orders Acetaminophen [Tylenol] 500 mg PO Q6H PRN 05/19/18 Famotidine [Pepcid AC] 10 mg PO HS 11/24/19 Ascorbic Acid [Vitamin C] 500 mg PO DAILY 02/29/20 Acetaminophen/Diphenhydramine [Tylenol PM 500-25mg] 1 tab PO HS PRN 08/13/20 Losartan [Cozaar] 25 mg PO DAILY 09/02/21 Calcipotriene [Dovonex] 1 applic TOPICAL BID 12/24/21 Clobetasol Propionate [Temovate 0.05% Cream] 1 applic TOPICAL BID 12/24/21
== END | disposition home or self-care (01) ==
LOC: PNWHC3 08:19
PROVIDERS: ATTEND Specialist
DX: M47.892 Other spondylosis, cervical region (principal); M50.30 Other cervical disc degeneration, unspecified cervical region
CPT/HCPCS: 99211

== ENCOUNTER → 2022-05-08 | Outpatient (CLI) | payer BC ==
[2022-05-08 08:44] VITALS: BP 173/95; PULSE 96; RESP 18; TEMP 98.2
--- NOTE | 2022-05-08 08:49 | P.PN ---
Subjective Progress Note Date: 05/08/22 This is a follow-up visit for this 51 years old female, diagnosed with cervical foraminal stenosis and cervical radiculopathy, cervical spondylosis, in the past we did cervical epidural steroid injection ,and that helped her neck pain significantly, she did very well until recentely, when she started complaining of severe neck pain with radiation to the right upper extremity associated with severe numbness and tingling sensation, she denies any motor or sensory deficit she denies any change in the bowel movement or urination, she denies any fever or night sweats. Physical Examinations : -Constitutiona : Cooperative , not in acute distress . -HEENT : nech : supple , no Lymphadenopathy , normal thyroid size . : eyes : no ptosis , no icterus, no photophobia . - neurologic : Cranial nerve II to XII intact , no focal neurological deffecit . -psychatric : alert , oriented X 3 , appropriate affect , intact judgment and insight . -Lymphatic : no Lymphadenopathy . - musculoskeltal : Cervical Spine motor stregnth in the deltoid and biceps, normal right side , normal Left side motor stregnth biceps and the wrist extensors normal right side ,normal left side . motor stregnth in the triceps muscle . normal Right side , normal Left side deep tendon reflexes normal at the biceps , normal at Brachioradialis , normal at triceps. cervical facet loading test: Negative Bilaterally Spurling test positive . Neck distraction test positive . Alena sign positive Lumber spine moter stegnth lower extremities ,thigh and legs 5/5 Right side , 5/5 Left side MRI of the cervical spine reviewed Assessment and plan= cervical radiculopathy. Cervical disc herniation. Patient could benefit from cervical epidural steroid injection under fluoroscopy guidance at C6-7 (right paramedian approach ) Procedure risk and benefits and alternatives discussed with the patient she agreed with proceeding Time with Patient: Less than 30 PQRS Measure Charge Sheet Measure #130: Documentation of Current Meds in Medical Chart: Patient's medications documented in chart Measure #226: Tobacco Use: Screen & Cessation Intervention: Pt not a tobacco user Measure #111: Pneumonia Vaccination: Pneumococcal vaccine NOT administered or previously given Measure #47: Advance Care Plan: Advance care planning discussed & documented, pt chose/unable to give Measure #412: Opioid Treatment Agreement: No documentation of signed opioid treatment agreement Measure #408: Opioid Therapy Follow-up Evaluation: Patient had NO f/u eval minimum every 3 months during opioid therapy Measure #317: Preventitive Care & Scrn High Bld Press & F/U: Pre-hypertensive or hypertensive BP documented, pt will f/u with PCP Measure #128: Body Mass Index (BMI) Screening & Follow-up: BMI documented ABOVE normal parameters - f/u documented Measure #131: Pain Assessment & Follow-up: Pain positive & plan documented, Follow-up scheduled Measure #431: Unhealthy Alcohol Use Preventative Care & Scrn: Patient not identified as an unhealthy alcohol user PQRS Narrative: Objective - Vital Signs Vital signs: Vital Signs Temp 98.2 F 05/08/22 08:36 Pulse 96 05/08/22 08:36 Resp 18 05/08/22 08:36 BP 173/95 05/08/22 08:36 Pulse Ox 96 05/08/22 08:36 FiO2 Intake & Output 05/07/22 05/08/22 05/08/22 18:59 06:59 18:59 Weight 63.503 kg
== END ==
LOC: PNWHC3 08:19
PROVIDERS: ATTEND Specialist
DX: M50.30 Other cervical disc degeneration, unspecified cervical region (principal); Z88.0 Allergy status to penicillin; Z88.6 Allergy status to analgesic agent; Z88.7 Allergy status to serum and vaccine; Z88.8 Allergy status to other drugs, medicaments and biological substances; Z87.891 Personal history of nicotine dependence
CPT/HCPCS: 99211

== ENCOUNTER 2022-06-03 06:22 | Day surgery (SDC) | payer BC ==
[2022-06-02 13:40] VITALS: BMI 28.3
[2022-06-03 06:48] VITALS: RESP 16; TEMP 97
[2022-06-03] MEDS ORDERED: IV FLUID CONTINUATION 1,000 ML IV ONE ×2 (06:58→07:30)
[2022-06-03] MEDS ORDERED: LACTATED RINGERS 1,000 ML IV SCH (06:59)
[2022-06-03] MEDS ORDERED: LIDOCAINE 1% (10MG/ML) FOR IV START INTRADERMA PRN (06:59)
[2022-06-03] MEDS ORDERED: MIDAZOLAM 2 MG/2 ML VIAL ONE (07:17)
[2022-06-03] MEDS ORDERED: DEXAMETHASONE SOD PHOSPHATE 10 MG/ML 1 ML VIAL ONE (07:17)
[2022-06-03] MEDS ORDERED: fentaNYL (PF) 50 MCG/ML 2 ML AMP ONE (07:17)
[2022-06-03] MEDS ORDERED: IOPAMIDOL M200 10 ML VIAL ONE (07:17)
--- NOTE | 2022-06-03 07:27 | P.PCN ---
Date of Procedure: 06/03/22 Procedure(s) Performed: PROCEDURE 1. Cervical epidural steroid injection under fluoroscopic guidance, C6-7 ( right paramedial approach ) 2. Cervical epidurogram. (Fluoroscopy images available at the radiology Department ) PREOPERATIVE DIAGNOSIS: 1- Cervical herniated Disc Diseases 2- Cervical radiculopathy. POSTOPERATIVE DIAGNOSIS: : 1- Cervical Degenerative Disc Diseases , 2- Cervical radiculopathy. ANESTHESIA:moderate sedations with versed 2 mg ,and Fentanyle 100 mcg . sedations start time =07:17 . sedations stop time= 07:24 EBL 0 PROCEDURE INDICATION: The patient with neck pain and radiculitis unresponsive to conservative treatment consents for procedure. PROCEDURE DESCRIPTION / TECHNIQUE: The patient was seen and identified in the preoperative area. Risks, benefits, complications, including but not limited to infections ,bleeding , allergic reactions to the medications ,and not complete pain releife, and alternatives were discussed with the patient, the patient agreed to proceed with the procedure and signed the consent. Patient was taken to the OR and time out was completed. The patient was placed in the prone position on the procedure table. A pillow was placed under the patients chest to increase the cervical interlaminar space. The cervical area was prepped and draped in the usual sterile fashion. Motor sedation was given to decrease the patient's anxiety, Vital signs were closely monitored during the procedure. Using anterior-posterior fluoroscopy, the C6-7 interlaminar space was identified and the skin over this site was marked and then infiltrated with 1% lidocaine subcutaneously. Subsequently, a 20-gauge 3-1/2-inch Tuohy epidural needle was inserted and advanced toward the right side of epidural space by means of the ``hanging-drop technique and guided by AP and lateral fluoroscopy. The correct needle position in the epidural space was verified with the injection of 2 mL of the water soluble contrast dye Isovue-200 and observing an excellent epidurogram with the epidural spread of the dye, after negative aspiration for blood and CSF and in the absence of paresthesias. Again after negative aspiration, mixture containing 20 mg Dexamethasone and 2 ml of preservative- free normal saline injected and a washout of epidurogram was seen. Needle was withdrawn intact, skin was cleansed, and bandages were applied. Complications= none. Disposition= patient was placed in supine position and transferred to the recovery room area in stable condition and there was no evidence of upper or lower extremity motor or sensory deficit after the procedure patient was discharged from recovery room after discharge criteria met and home discharge instructions was given by the staff and patient will follow with the pain clinic in 2-4 weeks
--- NOTE | 2022-06-03 07:37 | FL ---
Intraoperative/procedural fluoroscopic services were provided for cervical epidural injection. Total fluoroscopy time is 4 seconds with a total of 1 submitted image to PACS. Please see the operative not e for further details.
[2022-06-03 07:49] VITALS: BP 120/74; PULSE 75
== END 2022-06-03 07:50 | disposition home or self-care (01) ==
LOC: ORPAIN 06:22
PROVIDERS: ATTEND Specialist
DX: M50.123 Cervical disc disorder at C6-C7 level with radiculopathy (principal); F41.9 Anxiety disorder, unspecified; Z88.8 Allergy status to other drugs, medicaments and biological substances; Z88.0 Allergy status to penicillin; Z88.4 Allergy status to anesthetic agent
CPT/HCPCS: 81025; 62321; J2250; J1100; J3010; Q9966

== ENCOUNTER → 2022-06-19 | Outpatient (CLI) | payer BC ==
[2022-06-19 08:58] VITALS: BP 150/95; PULSE 91; RESP 18; TEMP 98.2
--- NOTE | 2022-06-19 13:33 | P.PAINPG ---
PQRS Measure Charge Sheet Comment: A 51 yr old female with a history of severe and chronic neck pain secondary to cervical degenerative disc diseases and spondylosis with facet arthropathy without myelopathy presents today for evaluation s/p CHAD C6-7. Pt states she experienced 50% pain relief x 2 wks s/p procedure. Pain level is currently at 4/10 in intensity, intermittent, R lower neck, dull/ achy/ sharp/ shooting towards the RUE. Pain is provoked as high as 8/10 by hyperextension/ lateral flexion. Pain is alleviated with PT/Massage/Chiropractic relief in the past, home stretching regimen, heat, medications (Tylenol OTC), repositioning and rest. Interventional pain procedures completed include CHAD C6-7. Patient is currently on Tylenol OTC Patient denies any side effects of the medication(s), denies excessive drowsiness or sleepiness, denies suicidal ideation and reports that the current pain medication is helping to control the pain and improve activities of daily living. Patient denies any motor or sensory deficits. Patient denies any fever or night sweats, denies any change in the bowel movements or urination. Physical Examination: -Constitutional: Cooperative. Not in acute distress . - Neurologic: Cranial nerve II to XII intact. No focal neurological deficits. - Psychatric: Alert & oriented x 3. Matching mood & appropriate affect. Judgment and insight intact. - Musculoskeletal: Cervical spine: Muscle bulk/ tone/ strength in the bilateral upper extremities normal Vertebral body tenderness to palpation over C6 Spurling test positive Distraction test positive Facet loading test positive Thoracic spine Muscle bulk / tone/ strength in the bilateral paraspinal muscles normal Vertebral body tender to palpation over Facet loading test positive Lumbar spine: Motor bulk/ tone/ strength lower extremities , thigh and legs : 5/5 Deep tendon reflexes : Normal Knee Jerk. Normal Ankle Jerk . Vertebral body tenderness to palpation over Lumbar Facet Loading Test positive Straight Leg Raise: positive at 30 degrees right side/ left side Gaenslen's Test positive Sacral spine : Severe tenderness over the Sacroiliac joint: right side / left side Range of motion: Flexion of the lumbar spine <60 degrees Range of motion: Extension of the lumbar spine <20 degrees Gaenslen's Test positive Loyd's Test positive Sera test: positive right side / left side Thigh Thrust Test Sacral Thrust Test Assessment and plan: Chronic neck pain secondary to cervical degenerative disc disease , spondylosis with facet arthropathy without myelopathy Recommendation of R paramedian CHAD C6-7 #2. May need a series of injections, up to 3 within a 6 mo period, for optimal pain relief. Risks, benefits of procedure discussed and pt verbalized understanding. Denies anticoagulant use or medical history of diabetes. All patient questions answered MAPS reviewed and it was appropriate. I have spent less than 30 minutes on patient care today. Dr Johnson was available by phone for the evaluation of this patient. The time was used to review the medical records including relevant urine studies and Prescription history (MAPs), review of the available imaging, evaluation and examination of the patient, coordination of care with the medical staff and if applicable referring physicians, as well as creation of the medical record - Pain Location Right Lower Neck Non-Pharmacological Interventions: Chiropractic Treatment, Heat, Massage, Physical Therapy, Position/Reposition Pharmacological Interventions: Epidural, PRN Medication PQRS Narrative: Smoking Status Former smoker Hx Alcohol Use (MH) No Home Medications: Ambulatory Orders Famotidine [Pepcid AC] 10 mg PO HS 11/24/19 Acetaminophen/Diphenhydramine [Tylenol PM 500-25mg] 1 tab PO HS PRN 08/13/20 Losartan [Cozaar] 25 mg PO DAILY 09/02/21 Guselkumab [Tremfya] 1 injection INJ DIRECTED 06/02/22 Controlled Substance Measures - Controlled Substance Measures Is patient prescribed a controlled substance at discharge?: No
== END | disposition home or self-care (01) ==
LOC: PNWHC3 08:01
PROVIDERS: ATTEND Specialist
DX: M47.892 Other spondylosis, cervical region (principal)
CPT/HCPCS: 99211

== ENCOUNTER 2022-07-31 06:30 | Day surgery (SDC) | payer BC ==
[~2022-07-31 06:30] MED LIST changes: -DEXAMETHASONE SOD PHOSPHATE 10 MG/ML 1 ML VIAL ONE; -IOPAMIDOL M200 10 ML VIAL ONE; -IV FLUID CONTINUATION 1,000 ML IV ONE; +LACTATED RINGERS 1,000 ML IV SCH; -MIDAZOLAM 2 MG/2 ML VIAL ONE; -fentaNYL (PF) 50 MCG/ML 2 ML AMP ONE
[2022-07-31 06:55] VITALS: RESP 16; TEMP 97
--- NOTE | 2022-07-31 08:10 | P.PCN ---
Date of Procedure: 07/31/22 Procedure(s) Performed: Procedure= trigger point injections cervical paraspinal muscles, 3 on the right side cervical paraspinal muscles, and 2 on the left side cervical paraspinal muscles Preoperative diagnosis= 1-myofascial pain syndrome ,cervical paraspinal muscles 2-cervical degenerative disc disease 3-cervical facet arthropathy .4-cervical radiculopathy Postoperative diagnosis=Same as preop Diagnosis . Complication = none Condition= stable Anesthesia= none. Indication for the procedure= patient complaining of severe neck pain , examination was positive for severe tenderness over the cervical paraspinal muscles bilaterally and patient diagnosed with myofascial pain syndrome and cervical area, for this reason she was good candidate for outside sales representative points injections. Description of the procedure= procedure risk and benefits discussed with the patient, including but not limited, risk of infection and bleeding, and ALLERGIC reaction to the medication and not complete pain relief and patient agreed with the preceding patient taken to the operating room, placed in sitting position or standard monitors applied to the patient then after induction of anesthesia back prepped with chlorhexidine 3 times , and under sterile technique each of the trigger point that is identified in the cervical paraspinal muscles injected with 2 ML of the mixtures of ropivacaine 0.5% mixed with 40 mg of Depo-Medrol , total of 10 ML of the mixture used , using 25-gauge needle, 2 mL injected at each trigger point after negative aspiration, a total of 3 trigger point identified and injected in the right side cervical paraspinal muscles ,and 2 trigger point identified and injected on the left side cervical paraspinal muscles, patient tolerated the procedure well without any complication and she'll follow in the pain clinic in a few weeks
[2022-07-31 08:24] VITALS: BP 148/85; PULSE 81
== END 2022-07-31 08:29 | disposition home or self-care (01) ==
LOC: ORPAIN 06:30
PROVIDERS: ATTEND Specialist
DX: M79.18 Myalgia, other site (principal); M50.10 Cervical disc disorder with radiculopathy, unspecified cervical region
CPT/HCPCS: 20553; 81025

== ENCOUNTER → 2022-10-22 | Outpatient (CLI) | payer BC ==
--- NOTE | 2022-10-23 08:31 | MM ---
Reason for Exam: Screening (asymptomatic). Last mammogram was performed 1 year(s) and 9 month(s) ago. Patient History: Menarche at age 14. First Full-Term at age 26. 04/10/2008, Benign Excisional Biopsy on the right side. Last menstrual period: 05/30/2022 Risk Values: Maria T 5 year model risk: 1.1%. NCI Lifetime model risk: 9.7%. Prior Study Comparison: 10/13/2018 Bilateral Screening Mammogram, [facility]. 12/05/2019 Bilateral Screening Mammogram, [facility]. 01/21/2021 Bilateral Screening Mammogram, [facility]. Tissue Density: The breast tissue is heterogeneously dense. This may lower the sensitivity of mammography. Findings: Analyzed By CAD. There is no suspicious group of microcalcifications or new suspicious mass in either breast. Overall Assessment: Negative, BI-RAD 1 Management: Screening Mammogram of both breasts in 1 year. A clinical breast exam by your physician is recommended on an annual basis and results should be correlated with mammographic findings. [facility] will attempt to contact patient to return for supplemental views and ultrasound if indicated. Electronically signed and approved by: Niels Bear DO
== END | disposition home or self-care (01) ==
LOC: RADMAMWWP 07:39
PROVIDERS: ATTEND Family Medicine
DX: Z12.31 Encounter for screening mammogram for malignant neoplasm of breast (principal)
CPT/HCPCS: 77063; 77067

== ENCOUNTER → 2024-03-18 | Outpatient (CLI) | payer BC ==
--- NOTE | 2024-03-22 17:09 | MM ---
Reason for Exam: Screening (asymptomatic). Last mammogram was performed 1 year(s) and 5 month(s) ago. Patient History: Menarche at age 14. First Full-Term at age 26. Perimenopausal. 04/10/2008, Benign Excisional Biopsy on the right side. Last menstrual period: 03/04/2024 Risk Values: Maria T 5 year model risk: 1.2%. NCI Lifetime model risk: 9.6%. Prior Study Comparison: 02/07/2016 Bilateral Screening Mammogram, [facility]. 06/04/2017 Bilateral Screening Mammogram, [facility]. 10/13/2018 Bilateral Screening Mammogram, [facility]. 12/05/2019 Bilateral Screening Mammogram, [facility]. 01/21/2021 Bilateral Screening Mammogram, [facility]. 10/22/2022 Bilateral MG 3D screening mammo w/cad, [facility]. Tissue Density: The breasts are heterogeneously dense, which may obscure small masses. Findings: Analyzed By CAD. The pattern is symmetrical. Pattern appears stable. A core marker is within the left breast 3 no significant interval change is evident No suspicious groups of microcalcifications, spiculated or lobular masses, architectural distortion or other secondary signs of malignancy are mammographically apparent. Overall Assessment: Benign, BI-RAD 2 Management: Screening Mammogram of both breasts in 1 year. A negative mammogram report should not preclude additional follow up of suspicious palpable abnormalities. Patient should continue monthly self breast exam. A clinical breast exam by your physician is recommended on an annual basis and results should be correlated with mammographic findings. Note on Maria T scores and lifetime risk: 1. A Maria T score greater than 3% is considered moderate risk. If this is the case, consider specialist referral to assess eligibility for a risk reducing agent. 2. If overall lifetime risk for the development of breast cancer is 20% or higher, the patient may qualify for future screening with alternating mammogram and breast MRI. Electronically signed and approved by: Fritz Gorman D.O. Radiologis
== END | disposition home or self-care (01) ==
LOC: RADMAMWWP 07:33
PROVIDERS: ATTEND Family Medicine
DX: Z12.31 Encounter for screening mammogram for malignant neoplasm of breast (principal)
CPT/HCPCS: 77063; 77067

== ENCOUNTER → 2025-04-04 | Outpatient (CLI) | payer BC ==
--- NOTE | 2025-04-04 11:18 | MM ---
Reason for Exam: Screening (asymptomatic). Last mammogram was performed 1 year(s) and 1 month(s) ago. Patient History: Menarche at age 14. First Full-Term at age 26. Postmenopausal. 04/10/2008, Benign Excisional Biopsy on the right side. Risk Values: Maria T 5 year model risk: 1.4%. NCI Lifetime model risk: 11.0%. Prior Study Comparison: 06/04/2017 Bilateral Screening Mammogram, [facility]. 10/13/2018 Bilateral Screening Mammogram, [facility]. 12/05/2019 Bilateral Screening Mammogram, [facility]. 01/21/2021 Bilateral Screening Mammogram, [facility]. 10/22/2022 Bilateral MG 3D screening mammo w/cad, [facility]. 03/18/2024 Bilateral MG 3D screening mammo w/cad, [facility]. Tissue Density: The breasts are heterogeneously dense, which may obscure small masses. Findings: Analyzed By CAD. A single coarse calcification posteriorly on the left is unchanged. There is no suspicious group of microcalcifications or new suspicious mass in either breast. Overall Assessment: Benign, BI-RAD 2 Management: Screening Mammogram of both breasts in 1 year. Patient should continue monthly self-breast exams. A clinical breast exam by your physician is recommended on an annual basis. This exam should not preclude additional follow-up of suspicious palpable abnormalities. Note on Maria T scores and lifetime risk: 1. A Maria T score greater than 3% is considered moderate risk. If this is the case, consider specialist referral to assess eligibility for a risk reducing agent. 2. If overall lifetime risk for the development of breast cancer is 20% or higher, the patient may qualify for future screening with alternating mammogram and breast MRI. [facility], , 04/04/2025 11:15 AM. Electronically signed and approved by: Marcial Martinez M.D. Radiologist
== END | disposition home or self-care (01) ==
LOC: RADMAMWWP 07:34
PROVIDERS: ATTEND Family Medicine
DX: Z12.31 Encounter for screening mammogram for malignant neoplasm of breast (principal); R92.333 Mammographic heterogeneous density, bilateral breasts; Z78.0 Asymptomatic menopausal state
CPT/HCPCS: 77063; 77067